=== PATIENT | female | born 1980 | race Caucasian/White ===

== ENCOUNTER 2017-04-06 15:42 | Emergency (ER) | payer SELFPAY ==
[2017-04-06 15:51] VITALS: BP 125/82
--- NOTE | 2017-04-06 16:10 | ER Document Report ---
ED Medical Screen (RME) - General Chief Complaint: Drug Abuse Stated Complaint: HEROINE WITHDRAWAL Time Seen by Provider: 04/06/17 16:05 Notes: This 36-year-old female patient comes emergency room and heroin withdrawal. She has been using over 10 years, currently shoots up about 3 times per day, had very little left for her last dose at 4:00 AM this morning. She complains of severe pain cramps all over. He has been in withdrawal in the past, has never gone through a detox program. I have greeted and performed a rapid initial assessment of this patient. A comprehensive ED assessment and evaluation of the patient, analysis of test results and completion of the medical decision making process will be conducted by additional ED providers. TRAVEL OUTSIDE OF THE [place] IN LAST 30 DAYS: No - Related Data Allergies/Adverse Reactions: erythromycin base Allergy (Verified 04/06/17 15:51) Penicillins Allergy (Verified 04/06/17 15:51) Past Medical History - Social History Drug Abuse: Heroin Renal/ Medical History: Denies: Hx Peritoneal Dialysis Physical Exam - Vital signs Vitals: Temp Pulse Resp BP Pulse Ox 98.2 F 81 24 H 125/82 100 04/06/17 15:48 04/06/17 15:48 04/06/17 15:48 04/06/17 15:48 04/06/17 15:48 Course - Vital Signs Vital signs: Temp Pulse Resp BP Pulse Ox 98.2 F 81 24 H 125/82 100 04/06/17 15:48 04/06/17 15:48 04/06/17 15:48 04/06/17 15:48 04/06/17 15:48
[2017-04-06] MEDS ORDERED: CLONIDINE HCL 0.1 MG TABLET PO ONE ×2 (16:11→16:57)
[2017-04-06] MEDS ORDERED: LORAZEPAM 1 MG TABLET PO ONE (16:19)
[2017-04-06 16:47] LABS: ABSOLUTE MONOCYTES (AUTO) 0.4 10^3/uL (0.1-1.4); ABSOLUTE NEUT (AUTO) 3.6 10^3/uL (1.7-8.2); EOSINOPHILS % (AUTO) 0.4 % (0-6); HEMATOCRIT 44.4 % (36.0-47.0); HEMOGLOBIN 14.4 g/dL (12.0-15.5); HGB HCT DIFFERENCE -1.2; LYMPHOCYTES % (AUTO) 19.8 % (13-45); MEAN CORPUSCULAR HEMOGLOBIN 27.7 pg (27.0-33.4); MEAN CORPUSCULAR HGB CONC 32.6 g/dL (32.0-36.0); MEAN CORPUSCULAR VOLUME 85 fl (80-97); MONOCYTES % (AUTO) 8.1 % (3-13); RED BLOOD COUNT 5.22 10^6/uL (3.72-5.28); RED CELL DISTRIBUTION WIDTH 15.3 % (11.5-14.0); SEGMENTED NEUTROPHILS % (AUTO) 70.7 % (42-78); WHITE BLOOD COUNT 5.1 10^3/uL (4.0-10.5)
--- NOTE | 2017-04-06 16:56 | ER Document Report ---
ED Substance Abuse / Acc. OD - General Chief Complaint: Drug Abuse Stated Complaint: HEROINE WITHDRAWAL Time Seen by Provider: 04/06/17 16:05 Mode of Arrival: Ambulatory Information source: Patient Notes: Patient is a 36-year-old female who presents today stating that she is trying to quit heroin after a 10 year time period. She states that she feels nauseous , body cramps, and chills. She denies any auditory or visual hallucinations, suicidal or homicidal ideations, headache, fevers, neck stiffness, or other review of systems. Patient states she does have a mental health provider. TRAVEL OUTSIDE OF THE [place] IN LAST 30 DAYS: No - HPI Patient complains to provider of: Substance withdrawal Onset: This morning Onset/Duration: Gradual Quality of pain: Achy Severity: Moderate Pain Level: Denies Associated Symptoms: Other - See above Similar symptoms previously: Yes Recently seen / treated by doctor: No - Related Data Allergies/Adverse Reactions: erythromycin base Allergy (Verified 04/06/17 15:51) Penicillins Allergy (Verified 04/06/17 15:51) Past Medical History - General Information source: Patient - Social History Smoking Status: Unknown if Ever Smoked Cigarette use (# per day): No Chew tobacco use (# tins/day): No Smoking Education Provided: No Frequency of alcohol use: None Drug Abuse: Heroin Family History: Reviewed & Not Pertinent Renal/ Medical History: Denies: Hx Peritoneal Dialysis Review of Systems - Review of Systems Constitutional: denies: Fever EENT: Nose congestion, Nose discharge. denies: Eye discharge Cardiovascular: denies: Chest pain, Palpitations Respiratory: denies: Short of breath Gastrointestinal: Nausea. denies: Vomiting Genitourinary: denies: Dysuria Musculoskeletal: denies: Leg swelling Skin: Other - no hives. denies: Rash Neurological/Psychological: Other - no slurred speech -: Yes All other systems reviewed and negative Physical Exam - Vital signs Vitals: Temp Pulse Resp BP Pulse Ox 98.2 F 81 24 H 125/82 100 04/06/17 15:48 04/06/17 15:48 04/06/17 15:48 04/06/17 15:48 04/06/17 15:48 Notes: Reviewed vital signs and nursing note as charted by RN. CONSTITUTIONAL: Alert and oriented and responds appropriately to questions. Appears to be anxious HEAD: Normocephalic; atraumatic EYES: PERRL; no nystagmus ENT: Normal nose; no rhinorrhea; moist mucous membranes; pharynx without lesions noted NECK: Supple without meningismus; non-tender; no cervical lymphadenopathy, no masses CARD: Regular rate and rhythm; no murmurs, no clicks, no rubs, no gallops; symmetric distal pulses RESP: Normal chest excursion without splinting or tachypnea; breath sounds clear and equal bilaterally ABD/GI: Normal bowel sounds; non-distended; soft, non-tender BACK: The back appears normal and is non-tender to palpation, there is no CVA tenderness EXT: Normal ROM in all joints; non-tender to palpation; no cyanosis, no effusions, no edema SKIN: Normal color for age and race; warm; dry; good turgor; capillary refill < 2 seconds; no acute lesions noted NEURO: Moves all extremities equally; Motor and sensory function intact PSYCH: The patient's mood and manner are appropriate. Grooming and personal hygiene are appropriate. Course - Re-evaluation Re-evalutation: Given the above history and physical examination, we will provide clonidine, nausea medications, and a small dose of a benzodiazepine. Patient has no suicidal or homicidal ideations. I believe that the patient is going through heroin withdrawal consistent with the history and physical. I have explained to the patient that we can provide clonidine as well as outpatient resources to help the patient ease her suffering. 04/06/17 16:55 EKG shows a heart rate of 78, normal sinus rhythm, right bundle branch block, no obvious ST elevation or depression 04/06/17 18:30 Labs as recorded. Patient feels improved. We have provided the patient multiple outpatient resources. Strict return precautions have been explained. We have started the patient on an antibiotic for presumed urinary tract infection. - Vital Signs Vital signs: Temp Pulse Resp BP Pulse Ox 98.2 F 81 24 H 125/82 100 04/06/17 15:48 04/06/17 15:48 04/06/17 15:48 04/06/17 15:48 04/06/17 15:48 - Laboratory Result Diagrams: 04/06/17 16:23 04/06/17 16:23 Laboratory results interpreted by me: 04/06/17 04/06/17 04/06/17 16:20 16:23 16:23 RDW 15.3 H Glucose 121 H Direct Bilirubin 0.5 H Total Protein 8.4 H Urine Protein 100 H Urine Ketones TRACE H Ur Leukocyte Esterase LARGE H Salicylates < 1.0 L Acetaminophen < 10 L Discharge - Discharge Clinical Impression: Adverse effect of heroin UTI (urinary tract infection) Qualifiers: Urinary tract infection type: acute cystitis Hematuria presence: without hematuria Qualified Code(s): N30.00 - Acute cystitis without hematuria Condition: Good Disposition: HOME, SELF-CARE Instructions: Urinary Tract Infection ([facility]), Trimethoprim-Sulfa ([facility]) Additional Instructions: Come back immediately with any fevers, persistent vomiting, increased pain, or any other acute problems. Please make sure that you follow-up with the outpatient resources that we have provided. Please make sure that you follow- up for repeat urine analysis as we have discussed Prescriptions: Promethazine HCl [Phenergan 25 mg Tablet] 25 mg PO Q6H PRN #15 tablet PRN Reason: Sulfamethoxazole/Trimethoprim [Bactrim Ds Tablet] 1 each PO BID #20 tablet
[2017-04-06] MEDS ORDERED: ONDANSETRON 4 MG TAB.RAPDIS PO ONE (16:57)
[2017-04-06 17:00] LABS: ALANINE AMINOTRANSFERASE 33 U/L (9-52); ALBUMIN 4.3 g/dL (3.5-5.0); ALKALINE PHOSPHATASE 119 U/L (38-126); ANION GAP 15 (5-19); ASPARTATE AMINO TRANSFERASE 24 U/L (14-36); BILIRUBIN,DIRECT 0.5 mg/dL (0.0-0.4); BILIRUBIN,TOTAL 0.8 mg/dL (0.2-1.3); BLOOD UREA NITROGEN 7 mg/dL (7-20); CALCIUM 9.8 mg/dL (8.4-10.2); CARBON DIOXIDE 23 mmol/L (22-30); CHLORIDE 105 mmol/L (98-107); CREATININE RESULT 0.61 mg/dL (0.52-1.25); GLUCOSE 121 mg/dL (75-110); SODIUM 142.6 mmol/L (137-145); TOTAL PROTEIN 8.4 g/dL (6.3-8.2)
[2017-04-06 17:01] LABS: ALCOHOL < 10 mg/dL (NONE DETECTED)
[2017-04-06 17:01] LABS: AMORPHOUS SEDIMENT,URINE TRACE /HPF; APPEARANCE,URINE CLOUDY; BILIRUBIN,URINE NEGATIVE (NEGATIVE); GLUCOSE, URINE NEGATIVE (NEGATIVE); KETONES,URINE TRACE mg/dL (NEGATIVE); LEUKOCYTE ESTERASE,URINE LARGE (NEGATIVE); NITRITE,URINE NEGATIVE (NEGATIVE); PROTEIN,URINE 100 mg/dL (NEGATIVE); URINE SPECIFIC GRAVITY 1.016; UROBILINOGEN,URINE NEGATIVE mg/dL (<2.0)
--- NOTE | 2017-04-06 17:04 | EKG REPORT ---
SEVERITY:- ABNORMAL ECG - SINUS RHYTHM RIGHT BUNDLE BRANCH BLOCK : Confirmed by: Marleni Varela MD 06-Apr-2017 17:03:58
[2017-04-06 17:27] LABS: URINE BARBITURATES SCREEN NEGATIVE; URINE METHADONE SCREEN NEGATIVE; URINE OPIATES LOW UNCONFIRMED POSITIVE; URINE PHENCYCLIDINE SCREEN NEGATIVE
[2017-04-06] MEDS ORDERED: SULFAMETHOXAZOLE/TRIMETHOPRIM 800-160 MG TABLET PO ONE (17:51)
== END 2017-04-06 18:50 | disposition home or self-care (01) ==
LOC: ER 15:42
DX: F11.10 Opioid abuse, uncomplicated (principal); R11.0 Nausea; N30.00 Acute cystitis without hematuria; R68.83 Chills (without fever); R25.2 Cramp and spasm; R09.81 Nasal congestion; Z88.1 Allergy status to other antibiotic agents; Z88.0 Allergy status to penicillin
CPT/HCPCS: 93005; 99284; 36415; 80307 ×4; 83735; 84703; 85025; 80053; 81001; 93010; S0119

== ENCOUNTER 2017-09-08 09:26 | Emergency (ER) | payer SELFPAY ==
--- NOTE | 2017-09-08 09:52 | ER Document Report ---
ED General - General Chief Complaint: Vaginal Bleeding Stated Complaint: ABDOMINAL PAIN Time Seen by Provider: 09/08/17 09:44 Mode of Arrival: Ambulatory Information source: Patient Notes: 37-year-old female 6 para 3 2 previous miscarriages presents with complaints of vaginal bleeding. Patient notes she found that she is approximately 2 weeks ago started having spotting for the past 10 days noted clots today. Patient denies any fevers or chills denies any nausea vomiting or diarrhea TRAVEL OUTSIDE OF THE [place] IN LAST 30 DAYS: No - HPI Onset: Last week Onset/Duration: Better - Got better after passing clots, Worse - Worsen up until today Quality of pain: Cramping Severity: Mild Pain Level: 1 Associated symptoms: Other Exacerbated by: Denies Relieved by: Denies Similar symptoms previously: Yes Recently seen / treated by doctor: No - Related Data Allergies/Adverse Reactions: erythromycin base Allergy (Verified 04/06/17 15:51) Penicillins Allergy (Verified 04/06/17 15:51) Past Medical History - Social History Smoking Status: Current Every Day Smoker Cigarette use (# per day): Yes Chew tobacco use (# tins/day): No Smoking Education Provided: No Frequency of alcohol use: None Drug Abuse: Heroin Family History: Reviewed & Not Pertinent Renal/ Medical History: Denies: Hx Peritoneal Dialysis Review of Systems - Review of Systems Notes: REVIEW OF SYSTEMS: CONSTITUTIONAL : Denies fever, chills, or sweats. Denies recent illness. EENT: Denies eye, ear, throat, or mouth pain or symptoms. Denies nasal or sinus congestion or discharge. Denies throat, tongue, or mouth swelling or difficulty swallowing. CARDIOVASCULAR: Denies chest pain. Denies palpitations or racing or irregular heart beat. Denies ankle edema. RESPIRATORY: Denies cough, cold, or chest congestion. Denies shortness of breath, difficulty breathing, or wheezing. GASTROINTESTINAL: Denies abdominal pain or distention. Denies nausea, vomiting , or diarrhea. Denies blood in vomitus, stools, or per rectum. Denies black, tarry stools. Denies constipation. GENITOURINARY: Denies difficulty urinating, painful urination, burning, frequency, blood in urine, or discharge. FEMALE GENITOURINARY: Admits pelvic pain vaginal bleeding MUSCULOSKELETAL: Denies back or neck pain or stiffness. Denies joint pain or swelling. SKIN: Denies rash, lesions or sores. HEMATOLOGIC : Denies easy bruising or bleeding. LYMPHATIC: Denies swollen, enlarged glands. NEUROLOGICAL: Denies confusion or altered mental status. Denies passing out or loss of consciousness. Denies dizziness or lightheadedness. Denies headache. Denies weakness or paralysis or loss of use of either side. Denies problems with gait or speech. Denies sensory loss, numbness, or tingling. Denies seizures. PSYCHIATRIC: Denies anxiety or stress. Denies depression, suicidal ideation, or homicidal ideation. ALL OTHER SYSTEMS REVIEWED AND NEGATIVE. PHYSICAL EXAMINATION: GENERAL: Well-appearing, well-nourished and in no acute distress. HEAD: Atraumatic, normocephalic. EYES: Pupils equal round and reactive to light, extraocular movements intact, conjunctiva are normal. ENT: Nares patent, oropharynx clear without exudates. Moist mucous membranes. NECK: Normal range of motion, supple without lymphadenopathy LUNGS: Breath sounds clear to auscultation bilaterally and equal. No wheezes rales or rhonchi. HEART: Regular rate and rhythm without murmurs ABDOMEN: Soft, nontender, nondistended abdomen. No guarding, no rebound. No masses appreciated. Female : deferred Musculoskeletal: Normal range of motion, no pitting or edema. No cyanosis. NEUROLOGICAL: Cranial nerves grossly intact. Normal speech, normal gait. Normal sensory, motor exams PSYCH: Normal mood, normal affect. SKIN: Warm, Dry, normal turgor, no rashes or lesions noted. Dictation was performed using [employer] voice recognition software Physical Exam - Vital signs Vitals: Temp Pulse Resp BP Pulse Ox 98.9 F 103 H 16 120/71 97 09/08/17 09:36 09/08/17 09:36 09/08/17 09:36 09/08/17 09:36 09/08/17 09:36 Course - Re-evaluation Re-evalutation: 09/08/17 09:52 RhoGam workup pending, patient believes she miscarried imaging pending 09/08/17 12:03 Patient's hCG is negative, she has not been based on this, ultrasound was also normal. Patient has been given instructions regarding this and follow- up After performing a Medical Screening Examination, I estimate there is LOW risk for ACUTE APPENDICITIS, BOWEL OBSTRUCTION, ACUTE CHOLECYSTITIS, PERFORATED DIVERTICULITIS, INCARCERATED HERNIA, PANCREATITIS, PELVIC INFLAMMATORY DISEASE, PERFORATED ULCER, ECTOPIC , or TUBO-OVARIAN ABSCESS, thus I consider the discharge disposition reasonable. Also, there is no evidence or peritonitis , sepsis, or toxicity. I have reevaluated this patient multiple times and no significant life threatening changes are noted. The patient and I have discussed the diagnosis and risks, and we agree with discharging home with close follow-up with the understanding that symptoms and presentations can change. We also discussed returning to the Emergency Department immediately if new or worsening symptoms occur. We have discussed the symptoms which are most concerning (e.g., bloody stool, fever, changing or worsening pain, vomiting) that necessitate immediate return. - Vital Signs Vital signs: Temp Pulse Resp BP Pulse Ox 98.9 F 103 H 16 120/71 97 09/08/17 09:36 09/08/17 09:36 09/08/17 09:36 09/08/17 09:36 09/08/17 09:36 - Laboratory Result Diagrams: 09/08/17 10:05 09/08/17 10:05 Laboratory results interpreted by me: 09/08/17 09/08/17 10:05 10:05 RDW 15.4 H Glucose 119 H - Diagnostic Test Radiology reviewed: Image reviewed, Reports reviewed Discharge - Discharge Clinical Impression: Vaginal bleeding Condition: Stable Disposition: HOME, SELF-CARE Additional Instructions: Follow up with your physician tomorrow for further care or return to the ED IMMEDIATELY if symptoms worsen or new concerns occur. If you cannot afford to follow up with your primary care physician a list of low cost clinics have been provided at the end of your discharge papers as well.
[2017-09-08 10:28] LABS: ABSOLUTE BASOPHILS # (AUTO) 0.1 10^3/uL (0.0-0.2); ABSOLUTE EOSINOPHILS # (AUTO) 0.2 10^3/uL (0.0-0.6); ABSOLUTE MONOCYTES (AUTO) 0.4 10^3/uL (0.1-1.4); ABSOLUTE NEUT (AUTO) 4.6 10^3/uL (1.7-8.2); BASOPHILS % (AUTO) 1.2 % (0-2); EOSINOPHILS % (AUTO) 2.1 % (0-6); HEMATOCRIT 41.1 % (36.0-47.0); HEMOGLOBIN 13.8 g/dL (12.0-15.5); HGB HCT DIFFERENCE 0.3; LYMPHOCYTES % (AUTO) 28.2 % (13-45); MEAN CORPUSCULAR HGB CONC 33.6 g/dL (32.0-36.0); MEAN CORPUSCULAR VOLUME 83 fl (80-97); MONOCYTES % (AUTO) 5.2 % (3-13); RED BLOOD COUNT 4.93 10^6/uL (3.72-5.28); RED CELL DISTRIBUTION WIDTH 15.4 % (11.5-14.0); SEGMENTED NEUTROPHILS % (AUTO) 63.3 % (42-78); WHITE BLOOD COUNT 7.3 10^3/uL (4.0-10.5)
[2017-09-08 10:44] LABS: ALANINE AMINOTRANSFERASE 30 U/L (9-52); ALKALINE PHOSPHATASE 82 U/L (38-126); ANION GAP 12 (5-19); APPEARANCE,URINE CLEAR; ASPARTATE AMINO TRANSFERASE 29 U/L (14-36); BILIRUBIN,DIRECT 0.3 mg/dL (0.0-0.4); BILIRUBIN,TOTAL 0.4 mg/dL (0.2-1.3); BILIRUBIN,URINE NEGATIVE (NEGATIVE); BLOOD UREA NITROGEN 10 mg/dL (7-20); CALCIUM 9.5 mg/dL (8.4-10.2); CARBON DIOXIDE 26 mmol/L (22-30); CHLORIDE 102 mmol/L (98-107); CREATININE RESULT 0.61 mg/dL (0.52-1.25); GLUCOSE 119 mg/dL (75-110); GLUCOSE, URINE NEGATIVE (NEGATIVE); KETONES,URINE NEGATIVE (NEGATIVE); LEUKOCYTE ESTERASE,URINE NEGATIVE (NEGATIVE); NITRITE,URINE NEGATIVE (NEGATIVE); POTASSIUM 4.8 mmol/L (3.6-5.0); PROTEIN,URINE NEGATIVE (NEGATIVE); SODIUM 140.1 mmol/L (137-145); TOTAL PROTEIN 6.9 g/dL (6.3-8.2); URINE SPECIFIC GRAVITY 1.005; UROBILINOGEN,URINE NEGATIVE mg/dL (<2.0)
--- NOTE | 2017-09-08 11:41 | RADIOLOGY REPORT (SQ) ---
EXAM DESCRIPTION: U/S OB TRANSVAGINAL W/O DOP COMPLETED DATE/TIME: 09/08/2017 11:18 am REASON FOR STUDY: vag bleed preg COMPARISON: None. TECHNIQUE: Transvaginal static and realtime grayscale images acquired of the pelvis. Additional alberto cted spectral and color Doppler images recorded. All images stored on PACs. bHCG: Not available. LIMITATIONS: None. FINDINGS: No intrauterine gestational sac is identified. UTERUS: 7 x 4.2 x 4.1 cm. No masses or anomalies. CERVICAL LENGTH: 2 cm Closed. RIGHT ADNEXA: Right ovary measures 3.9 x 3.1 x 2.8 cm. There is a 2.8 x 2.3 x 2.6 cm cyst that conta ins dependent debris. No adnexal free fluid. No adnexal masses. LEFT ADNEXA: Left ovary measures 3.4 x 2.9 x 1.6 cm. No adnexal free fluid. No adnexal masses. FREE FLUID: None. OTHER: No other significant finding. IMPRESSION: 1. No intrauterine gestation is seen 2. There is a right ovarian cyst that likely represents a hemorrhagic cyst. TECHNICAL DOCUMENTATION: JOB ID: [id number] [employer]- All Rights Reserved
[2017-09-08 12:04] VITALS: BP 103/65
== END 2017-09-08 12:04 | disposition home or self-care (01) ==
LOC: ER 09:26
DX: N83.201 Unspecified ovarian cyst, right side (principal); N93.9 Abnormal uterine and vaginal bleeding, unspecified; R10.9 Unspecified abdominal pain
CPT/HCPCS: 36415; 76817; 80053; 81001; 84702; 85025; 86900; 86901; 99284

== ENCOUNTER 2017-10-18 13:37 | Emergency (ER) | payer SELFPAY ==
[2017-10-18] MEDS ORDERED: CLINDAMYCIN HCL 150 MG CAPSULE PO ONE (15:09)
[2017-10-18] MEDS ORDERED: LIDOCAINE 2% VISCOUS SOLN 20 ML UDCUP PO ONE (15:09)
--- NOTE | 2017-10-18 15:14 | ER Document Report ---
ED Oral Problem - General Chief Complaint: Toothache Stated Complaint: MOUTH PAIN Time Seen by Provider: 10/18/17 14:50 Mode of Arrival: Ambulatory Information source: Patient Notes: Patient was seen this afternoon at 1450 for dental pain to the left lower jaw. She has multiple very decayed teeth in this area who that have been decayed for some time and she states that 1 of them broke today. She states that she had been living in [place] and that they would not fix her teeth that she did not have insurance. She states she is moved to [place] and is not got the money to fix them now. TRAVEL OUTSIDE OF THE U.S. IN LAST 30 DAYS: No - HPI Patient complains to provider of: Jaw pain, Toothache Onset: Other - Chronic Quality of pain: Sharp, Throbbing Severity: Severe Pain Level: 5 Associated symptoms: Jaw pain, Toothache Worsened by: Cold Relieved by: Nothing Similar symptoms previously: Yes Recently seen / treated by doctor/dentist: No - Related Data Allergies/Adverse Reactions: erythromycin base Allergy (Verified 10/18/17 14:07) Penicillins Allergy (Verified 10/18/17 14:07) Past Medical History - General Information source: Patient - Social History Smoking Status: Current Every Day Smoker Cigarette use (# per day): Yes - 5 cigarettes a day Chew tobacco use (# tins/day): No Smoking Education Provided: Yes - 3 minutes Frequency of alcohol use: None Drug Abuse: None Occupation: [employer] Lives with: Alone Family History: Reviewed & Not Pertinent Patient has suicidal ideation: No Patient has homicidal ideation: No - Past Medical History Cardiac Medical History: Reports: None Pulmonary Medical History: Reports: None EENT Medical History: Reports: None Neurological Medical History: Reports: Hx Migraine Renal/ Medical History: Reports: Hx Ovarian Cysts Malignancy Medical History: Reports: Other - ovarian GI Medical History: Reports: None Musculoskeltal Medical History: Reports Hx Musculoskeletal Trauma Skin Medical History: Reports None Psychiatric Medical History: Reports: Hx Anxiety, Hx Bipolar Disorder, Hx Borderline Personality Disorder, Hx Depression, Hx Post Traumatic Stress Disorder Traumatic Medical History: Reports: Hx Fractures - Patient states she has had a hip and multiple bones in her face fractures Infectious Medical History: Reports: None Surgical Hx: Negative Past Surgical History: Reports: None Review of Systems - Review of Systems Constitutional: No symptoms reported EENT: Mouth pain, Mouth swelling, Dental problem Cardiovascular: No symptoms reported Respiratory: No symptoms reported Gastrointestinal: No symptoms reported Genitourinary: No symptoms reported Female Genitourinary: No symptoms reported Musculoskeletal: No symptoms reported Skin: No symptoms reported Hematologic/Lymphatic: No symptoms reported Neurological/Psychological: No symptoms reported Physical Exam - Vital signs Vitals: Temp Pulse Resp BP Pulse Ox 98.7 F 67 14 132/66 H 100 10/18/17 13:46 10/18/17 13:46 10/18/17 13:46 10/18/17 13:46 10/18/17 13:46 Interpretation: Normal - General General appearance: Appears well, Alert - HEENT Head: Normocephalic, Atraumatic Eyes: Normal Pupils: PERRL Ears: Normal External canal: Normal Tympanic membrane: Normal Sinus: Normal Nasal: Normal Mouth/Lips: Caries Teeth diagram: 1 - Very decayed crumbling teeth with redness surrounding the gums Pharynx: Other - Minimal swelling to be jaw. States that she felt the abscess pop and drainage call in her mouth tastes bad earlier today Neck: Anterior cervical chain - Respiratory Respiratory status: No respiratory distress Chest status: Nontender Breath sounds: Normal Chest palpation: Normal - Cardiovascular Rhythm: Regular Heart sounds: Normal auscultation Murmur: No - Abdominal Inspection: Normal Distension: No distension Bowel sounds: Normal Tenderness: Nontender Organomegaly: No organomegaly - Back Back: Normal, Nontender - Extremities General upper extremity: Normal inspection, Nontender, Normal color, Normal ROM , Normal temperature General lower extremity: Normal inspection, Nontender, Normal color, Normal ROM , Normal temperature, Normal weight bearing. No: Melvin's sign - Neurological Neuro grossly intact: Yes Cognition: Normal Orientation: AAOx4 [place] Coma Scale Eye Opening: Spontaneous Bri Coma Scale Verbal: Oriented Bri Coma Scale Motor: Obeys Commands [place] Coma Scale Total: 15 Speech: Normal Motor strength normal: LUE, RUE, LLE, RLE Sensory: Normal - Psychological Associated symptoms: Normal affect, Normal mood - Skin Skin Temperature: Warm Skin Moisture: Dry Skin Color: Normal Course - Re-evaluation Re-evalutation: 10/18/17 20:55 patient was treated with clindamycin viscous lidocaine in the emergency room for her dental pain and decayed teeth. This is a chronic problem that she has had for a long time and has not been to the dentist to have definitive treatment. She was discharged home with a prescription for clindamycin instructed on use of ibuprofen and Tylenol in the need to please follow-up with the dentist. - Vital Signs Vital signs: Temp Pulse Resp BP Pulse Ox 98.7 F 81 16 124/69 100 10/18/17 13:46 10/18/17 15:34 10/18/17 15:34 10/18/17 15:34 10/18/17 15:34 Discharge - Discharge Clinical Impression: Pain due to dental caries High blood pressure Qualifiers: Hypertension type: unspecified Qualified Code(s): I10 - Essential (primary) hypertension Condition: Stable Disposition: HOME, SELF-CARE Additional Instructions: TOOTHACHE: Your pain is due to dental decay. The tooth must be repaired in order for you to feel better. You will, therefore, be referred to a dentist. We do not have dentists on the staff at [facility]. Severe swelling or drainage around a tooth usually means a dental abscess. This also requires evaluation and treatment by the dentist, but antibiotics may be prescribed while awaiting dental treatment. You should be rechecked immediately if you develop major swelling of the face, increasing pain, a lump in the jaw or gums, headache, difficulty swallowing, or fever. High Blood Pressure When your blood pressure was taken today it was elevated. Today's reading was____132/66 . Pre-hypertension/Hypertension: The patient has been informed that they may have pre-hypertension or Hypertension based on a blood pressure reading in the emergency department. I recommend that the patient call the primary care provider listed on their discharge instructions or a physician of their choice this wee to arrange follow up for further evaluation of possible pre- hypertension or Hypertension. Sometimes, stress or illness causes a temporary elevation of your blood pressure. We suggest that you get your blood pressure measured three more times during the next few days to see if this is more than a temporary abnormality. If your blood pressure is greater than 150/90 on each occasion, you must have treatment. Some simple things you can do to help are: If you have blood pressure medicine but aren't using it regularly, start taking it again. Get some aerobic exercise for at least 20 minutes on a daily basis. (See your doctor before beginning a new exercise program.) Eat a low-fat diet. Lose excess weight. Avoid salty foods and avoid adding salt to any of the foods you eat. Avoid diet pills, decongestants, "energizing" herbs, and other medicines that elevate blood pressure. If left untreated, hypertension greatly enhances your risk for developing heart disease and strokes. Please don't ignore this problem. CLINDAMYCIN: You have been given a prescription for the antibiotic clindamycin. It is often prescribed for infections in the mouth, such as dental infections or abscesses, and for skin infections due to MRSA. It's important that you take all the medication, unless instructed otherwise by your physician. Failure to complete the entire course can result in relapse of your condition. Common side effects of antibiotics include nausea, intestinal cramping, or diarrhea. Women may develop vaginal yeast infections, and babies can get yeast (thrush) in the mouth following the use of antibiotics. Contact your physician if you develop significant side effects from this medication. Allergy to this antibiotic can result in hives, wheezing, faintness, or itching. If symptoms of allergy occur, stop the medication and call the doctor. FOLLOW-UP CARE: You have been referred for follow-up care to the dentists listed below. Call the dentists office for an appointment as you were instructed or within the next two days. If you experience worsening or a significant change in your symptoms, notify the physician immediately or return to the Emergency Department at any time for re-evaluation. [facility] [address] [place], [place] Wednesday mornings, by appointment [facility] [address] [place] [address] [facility]ly [facility], [facility] [address] [facility] [address] [facility] [address] [facility]. YuanVpresbyterian kaseman hospitalDFT Micro[facility] [address] [place] [email or web address] [address] [place] [address] Wednesday- 8:00am to 5:00 pm Will see patients from other [facility]. Charges based on income and family size and accepts Medicare, Medicaid, and Insurances Will pull molars [facility] [phone] Hours of Operation 8:00 am - 4:30 pm weekdays The following dental offices accept Medicaid: [facility] Dr. Foy Dr. Peck Dr. Mccullough Dr. Welsh Richard Grey, Saji, and Rajni oral surgery Dr. Murphy ([place]) Dr. Lewis ([place]) [facility] Drs. Campuzano and Alonzo ([place]) Dr. Hill ([place]) [facility] Dr. Candelaria ([place]) Drs. Paul and ([place]) Medicaid Care Line Prescriptions: Clindamycin HCl 300 mg PO Q6 #40 capsule Forms: Elevated Blood Pressure, Smoking Cessation Education, Return to Work
[2017-10-18 15:36] VITALS: BP 124/69
== END 2017-10-18 15:37 | disposition home or self-care (01) ==
LOC: ER 13:37
DX: K02.9 Dental caries, unspecified (principal); K08.89 Other specified disorders of teeth and supporting structures; R22.0 Localized swelling, mass and lump, head; I10 Essential (primary) hypertension; F17.210 Nicotine dependence, cigarettes, uncomplicated; Z71.6 Tobacco abuse counseling; Z88.1 Allergy status to other antibiotic agents; Z88.0 Allergy status to penicillin
CPT/HCPCS: 99282; J3490

== ENCOUNTER 2018-07-18 22:24 | Emergency (ER) | payer SELFPAY ==
[2018-07-18 22:44] VITALS: BP 121/75
[2018-07-19] MEDS ORDERED: FLUCONAZOLE 100 MG TABLET PO ONE (01:25)
--- NOTE | 2018-07-19 01:28 | ER Document Report ---
HPI - HPI Patient complains to provider of: Skin rash Pain Level: 4 Context: Patient is a 38-year-old female that comes to the emergency department for states that it actually was worse about a day ago but it has not resolved. She states it is uncomfortable and itchy. She denies fever chills, she denies any other symptoms. She denies history of the same. She has had chickenpox. Tetanus is up-to-date reportedly. - CONSTITUTIONAL Constitutional: DENIES: Fever, Chills - EENT EENT: DENIES: Sore Throat, Ear Pain, Eye problems - NEURO Neurology: DENIES: Headache, Weakness, Vision blurred, Dizzinesss / Vertigo - CARDIOVASCULAR Cardiovascular: DENIES: Chest pain - RESPIRATORY Respiratory: DENIES: Trouble Breathing, Coughing - GASTROINTESTINAL Gastrointestinal: DENIES: Abdominal Pain, Black / Bloody Stools - URINARY Urinary: DENIES: Dysuria, Urgency, Frequency - MUSCULOSKELETAL Musculoskeletal: DENIES: Extremity pain Past Medical History - General Information source: Patient - Social History Smoking Status: Former Smoker Lives with: Family Family History: Reviewed & Not Pertinent Patient has suicidal ideation: No Patient has homicidal ideation: No Neurological Medical History: Reports: Hx Migraine Renal/ Medical History: Reports: Hx Ovarian Cysts. Denies: Hx Peritoneal Dialysis Musculoskeletal Medical History: Reports Hx Musculoskeletal Trauma Psychiatric Medical History: Reports: Hx Anxiety, Hx Bipolar Disorder, Hx Borderline Personality Disorder, Hx Depression, Hx Post Traumatic Stress Disorder Traumatic Medical History: Reports: Hx Fractures - Patient states she has had a hip and multiple bones in her face fractures Vertical Provider Document - CONSTITUTIONAL General Appearance: WD/WN, No Apparent Distress - INFECTION CONTROL TRAVEL OUTSIDE OF THE U.S. IN LAST 30 DAYS: No - HEENT HEENT: Atraumatic, Normal ENT Exam, Normocephalic - NECK Neck: Normal Inspection - RESPIRATORY Respiratory: Breath Sounds Normal, No Respiratory Distress - CARDIOVASCULAR Cardiovascular: Regular Rate, Regular Rhythm - GI/ABDOMEN Gastrointestinal: Abdomen Soft, Abdomen Non-Tender - BACK Back: Normal Inspection - NEURO Level of Consciousness: Awake, Alert, Appropriate - DERM Integumentary: Rash - Erythematous scattered rash over the fold of the lower abdomen, crosses the midline, no overt heat, no vesicles, pustules, bulla, no induration or fluctuance, skin exam otherwise unremarkable. Course - Re-evaluation Re-evalutation: Patient has a skin fold at the bottom of her abdomen, underneath pannus there is an area of skin irritation, erythema, consistent with fungal infection of the skin. Patient states she is placing wet cloth over the area because it feels good. Advised her against this, discussed treatment of yeast. There is no evidence of vesicles/shingles, no evidence of secondary bacterial infection, rash crosses the midline. Discussed treatment, given Diflucan, placing on clotrimazole, discussed primary care follow-up and return precautions. Patient states understanding and agreement. - Vital Signs Vital signs: Temp Pulse Resp BP Pulse Ox 99.1 F 81 18 121/75 97 07/18/18 22:43 07/18/18 22:43 07/18/18 22:43 07/18/18 22:43 07/18/18 22:43 Discharge - Discharge Clinical Impression: Skin rash Condition: Stable Disposition: HOME, SELF-CARE Additional Instructions: The rash is fungal in nature. You have been medicated for this initially, complete treatment by applying topical medication as well. Keep area clean, make sure the area is dry (if the area is damp it will be less likely to heal). Follow-up with primary care. Return if you worsen including developing spreading redness, severe pain, fever of 100.4 or greater, or any other concerning symptoms. Prescriptions: Clotrimazole 30 gm TP ASDIR PRN #2 cream.gm. PRN Reason:
== END 2018-07-19 01:40 | disposition home or self-care (01) ==
LOC: ER 22:24
DX: R21 Rash and other nonspecific skin eruption (principal); Z87.891 Personal history of nicotine dependence
CPT/HCPCS: 99282

== ENCOUNTER 2019-06-19 14:24 | Emergency (ER) | payer BC ==
--- NOTE | 2019-06-19 14:41 | ER Document Report ---
ED Medical Screen (RME) - General Chief Complaint: Seizure Stated Complaint: POSSIBLE SEIZURE Time Seen by Provider: 06/19/19 14:30 Notes: Patient is a 38-year-old female presents to emergency department with a chief complaint of possible seizure. Patient states around 9 AM she was getting ready for work in her bathroom when she had acute onset of headache, a feeling like her pupils were dilating and all she remembers is waking up on the floor around 1:40 PM this afternoon. Patient does report a loss of consciousness and states she feels like she hit her head on the right side she does feel a soreness. Patient states she woke up this at the bathroom toilet. Patient states she has had seizures in the past and did stop taking her Tegretol in April because she did not like the way it made her feel. Patient states she has been on methadone for the past 9 years for chronic pain. Patient states that in October she went to the [facility] to detox off of the methadone as she did not want to be on medication anymore. Patient states that at that time she did have multiple seizures. They did not put her on Suboxone. Patient has been taking Suboxone since then as prescribed. Patient states she was on Tegretol for seizures and depression. TRAVEL OUTSIDE OF THE [place] IN LAST 30 DAYS: No - Related Data Allergies/Adverse Reactions: erythromycin base Allergy (Verified 06/19/19 14:27) Penicillins Allergy (Verified 06/19/19 14:27) Past Medical History - Social History Frequency of alcohol use: None Drug Abuse: None Neurological Medical History: Reports: Hx Migraine Renal/ Medical History: Reports: Hx Ovarian Cysts. Denies: Hx Peritoneal Dialysis Musculoskeltal Medical History: Reports Hx Musculoskeletal Trauma Psychiatric Medical History: Reports: Hx Anxiety, Hx Bipolar Disorder, Hx Borderline Personality Disorder, Hx Depression, Hx Post Traumatic Stress Disorder Traumatic Medical History: Reports: Hx Fractures - Patient states she has had a hip and multiple bones in her face fractures Physical Exam - Vital signs Vitals: Temp Pulse Resp BP Pulse Ox 98.2 F 87 18 121/64 98 06/19/19 14:29 06/19/19 14:29 06/19/19 14:29 06/19/19 14:29 06/19/19 14:29 Interpretation: Normal - HEENT Head: Normocephalic Eyes: Normal Conjunctiva: Normal Cornea: Normal Extraocular movements intact: Yes Eyelashes: Normal Pupils: PERRL Notes: Negative lorenzo sign. Course - Re-evaluation Re-evalutation: 06/19/19 14:40 I have greeted and performed a rapid initial assessment of this patient. A comprehensive ED assessment and evaluation of the patient, analysis of test results and completion of the medical decision making process will be conducted by additional ED providers. - Vital Signs Vital signs: Temp Pulse Resp BP Pulse Ox 98.2 F 87 18 121/64 98 06/19/19 14:29 06/19/19 14:29 06/19/19 14:29 06/19/19 14:29 06/19/19 14:29
[2019-06-19 15:05] LABS: ABSOLUTE BASOPHILS # (AUTO) 0.1 10^3/uL (0.0-0.2); ABSOLUTE EOSINOPHILS # (AUTO) 0.2 10^3/uL (0.0-0.6); ABSOLUTE MONOCYTES (AUTO) 0.4 10^3/uL (0.1-1.4); ABSOLUTE NEUT (AUTO) 5.5 10^3/uL (1.7-8.2); BASOPHILS % (AUTO) 0.8 % (0-2); EOSINOPHILS % (AUTO) 2.2 % (0-6); HEMATOCRIT 39.6 % (36.0-47.0); HEMOGLOBIN 13.3 g/dL (12.0-15.5); LYMPHOCYTES % (AUTO) 24.6 % (13-45); MEAN CORPUSCULAR HEMOGLOBIN 28.3 pg (27.0-33.4); MEAN CORPUSCULAR HGB CONC 33.5 g/dL (32.0-36.0); MEAN CORPUSCULAR VOLUME 85 fl (80-97); MONOCYTES % (AUTO) 4.6 % (3-13); PLATELET COUNT 306 10^3/uL (150-450); RED BLOOD COUNT 4.68 10^6/uL (3.72-5.28); SEGMENTED NEUTROPHILS % (AUTO) 67.8 % (42-78); TOTAL CELLS COUNTED % (AUTO) 100 %; WHITE BLOOD COUNT 8.1 10^3/uL (4.0-10.5)
[2019-06-19 15:28] LABS: ALKALINE PHOSPHATASE 65 U/L (38-126); ANION GAP 9 (5-19); ASPARTATE AMINO TRANSFERASE 22 U/L (14-36); BILIRUBIN,DIRECT 0.2 mg/dL (0.0-0.4); BILIRUBIN,TOTAL 0.3 mg/dL (0.2-1.3); BLOOD UREA NITROGEN 10 mg/dL (7-20); CALCIUM 9.3 mg/dL (8.4-10.2); CARBON DIOXIDE 26 mmol/L (22-30); CHLORIDE 104 mmol/L (98-107); GLUCOSE 93 mg/dL (75-110); POTASSIUM 4.5 mmol/L (3.6-5.0); TOTAL PROTEIN 6.8 g/dL (6.3-8.2)
--- NOTE | 2019-06-19 15:44 | RADIOLOGY REPORT (SQ) ---
EXAM DESCRIPTION: CT HEAD WITHOUT COMPLETED DATE/TIME: 06/19/2019 3:36 pm REASON FOR STUDY: fall, + loc COMPARISON: None. TECHNIQUE: Axial images acquired through the brain without intravenous contrast. Images reviewed wi th bone, brain and subdural windows. Additional sagittal and coronal reconstructions were generated. Images stored on PACS. All CT scanners at this facility use dose modulation, iterative reconstruction, and/or weight based d osing when appropriate to reduce radiation dose to as low as reasonably achievable (ALARA). [facility]: Dose Right [facility]: CareDose [facility]: Dose Right [facility]: Teradose 4D [facility]: [employer] RADIATION DOSE: CT Rad equipment meets quality standard of care and radiation dose reduction techniq ues were employed. CTDIvol: 53.2 mGy. DLP: 964 mGy-cm. mGy. LIMITATIONS: None. FINDINGS: VENTRICLES: Normal size and contour. CEREBRUM: No masses. No hemorrhage. No midline shift. No evidence for acute infarction. Normal gra y/white matter differentiation. No areas of low density in the white matter. CEREBELLUM: No masses. No hemorrhage. No alteration of density. No evidence for acute infarction. EXTRAAXIAL SPACES: No fluid collections. No masses. ORBITS AND GLOBE: No intra- or extraconal masses. Normal contour of globe without masses. CALVARIUM: No fracture. PARANASAL SINUSES: No fluid or mucosal thickening. SOFT TISSUES: No mass or hematoma. OTHER: No other significant finding. IMPRESSION: NORMAL BRAIN CT WITHOUT CONTRAST. EVIDENCE OF ACUTE STROKE: NO. COMMENT: Quality ID # [id number]: Final reports with documentation of one or more dose reduction techniques (e.g., Automated exposure control, adjustment of the mA and/or kV according to patient size, use of iterative reconstruction technique) TECHNICAL DOCUMENTATION: JOB ID: [id number] [employer] ([employer])- All Rights Reserved Reading location - IP/workstation name: [email or web address]
--- NOTE | 2019-06-19 15:59 | ER Document Report ---
ED General - General Chief Complaint: Seizure Stated Complaint: POSSIBLE SEIZURE Time Seen by Provider: 06/19/19 14:30 TRAVEL OUTSIDE OF THE [place] IN LAST 30 DAYS: No - HPI Notes: Patient is a 38-year-old female who presents to the emergency department for evaluation after a seizure. The patient has a known history of seizure disorder. She was being treated with Tegretol. She states that she thought her dose was too high. Her provider was treating her with this for not only seizure disorder but also bipolar disorder. She states she was so tired she could not get out of bed. She stopped taking the medication. Since stopping the medicine about a month ago, she has had 3 seizures. She states last month she had was today. She turned on her water to get in the shower, woke up on the floor. She has a mild headache at this time. She denies any neck stiffness. Bright light makes the head pain worse. She has been dizzy intermittently over the last several days. She just feels fatigued. - Related Data Allergies/Adverse Reactions: erythromycin base Allergy (Verified 06/19/19 14:27) Penicillins Allergy (Verified 06/19/19 14:27) Past Medical History - General Information source: Patient - Social History Smoking Status: Current Every Day Smoker Frequency of alcohol use: None Drug Abuse: None Family History: Reviewed & Not Pertinent Patient has suicidal ideation: No Patient has homicidal ideation: No Neurological Medical History: Reports: Hx Migraine, Hx Seizures Renal/ Medical History: Reports: Hx Ovarian Cysts. Denies: Hx Peritoneal Dialysis Musculoskeletal Medical History: Reports Hx Musculoskeletal Trauma Psychiatric Medical History: Reports: Hx Anxiety, Hx Bipolar Disorder, Hx Borderline Personality Disorder, Hx Depression, Hx Post Traumatic Stress Disorder Traumatic Medical History: Reports: Hx Fractures - Patient states she has had a hip and multiple bones in her face fractures Past Surgical History: Reports: Hx Tubal Ligation Review of Systems - Review of Systems Constitutional: See HPI EENT: No symptoms reported Cardiovascular: See HPI Respiratory: No symptoms reported Gastrointestinal: No symptoms reported Genitourinary: No symptoms reported Musculoskeletal: No symptoms reported Skin: No symptoms reported Neurological/Psychological: No symptoms reported Physical Exam - Vital signs Vitals: Temp Pulse Resp BP Pulse Ox 98.2 F 87 18 121/64 98 06/19/19 14:29 06/19/19 14:29 06/19/19 14:29 06/19/19 14:29 06/19/19 14:29 - Notes Notes: Vital signs reviewed, please refer to chart. Head is normocephalic, atraumatic. Pupils equal round, reactive to light. Neck is supple without meningismus. Examination of the cervical spine is no midline tenderness or step-off. No paraspinal musculature tenderness is appreciated. Heart is regular rate and rhythm. Lungs are clear to auscultation bilaterally. Abdomen is soft, nontender, normoactive bowel sounds throughout. Extremities without cyanosis, clubbing. Posterior calves are nontender. Peripheral pulses are equal. Skin is warm and dry. Patient is awake, alert, oriented x3. Cranial nerves II - XII are grossly intact without focal neurological deficits. Strength is plus 5 out of 5 bilateral upper and lower extremities. Sensation is intact. Reflexes symmetrical. Intact [id number], rapid alternating movements, [id number]. Course - Re-evaluation Re-evalutation: 06/19/19 18:11 Patient presents emergency department for evaluation after a seizure. She does specifically ask for a work excuse. She is currently not any sort of anticonvulsant. She did not tolerate Tegretol in the past secondary to fatigue, but was actually well controlled. She had no seizure activity while here. Her laboratory investigations were remarkable only for positive cocaine. CT scan unremarkable. Patient was given IV fluids, loaded with Keppra. I will go ahead and start her on Keppra as an outpatient. The importance of close follow-up was stressed to the patient. I also spoke extensively to her about the fact that she should absolutely, in no uncertain terms, not be driving. Patient voiced understanding to this. We talked at length about the danger that this poses to herself as well as to other people on the road. Again she voiced understanding and states she will not drive. Otherwise she is to follow-up with primary care, take Keppra as directed, return to the ED with worsening or new concerning symptoms of any sort. - Vital Signs Vital signs: Temp Pulse Resp BP Pulse Ox 98.2 F 87 15 110/68 98 06/19/19 14:29 06/19/19 14:29 06/19/19 17:00 06/19/19 15:13 06/19/19 17:00 - Laboratory Result Diagrams: 06/19/19 14:55 06/19/19 14:55 Laboratory results interpreted by me: 06/19/19 06/19/19 14:55 16:35 RDW 15.0 H Urine Blood LARGE H - Diagnostic Test Radiology reviewed: Reports reviewed Radiology results interpreted by me: 06/19/19 18:[address] 06/19/19 14:36 IMPRESSION: NORMAL BRAIN CT WITHOUT CONTRAST. EVIDENCE OF ACUTE STROKE: NO. Discharge - Discharge Clinical Impression: Seizure Condition: Stable Disposition: HOME, SELF-CARE Instructions: Seizure, Known Epileptic ([facility]) Additional Instructions: You need to take Keppra as directed. Follow-up with primary care this week, seek out referral to neurology. Return to the emergency department with worsening or new concerning symptoms. DO NOT DRIVE! Forms: Return to Work
[2019-06-19] MEDS ORDERED: NORMAL SALINE 1000 ML 1,000 ML IV ONE (16:58)
[2019-06-19 17:10] LABS: APPEARANCE,URINE CLEAR; BILIRUBIN,URINE NEGATIVE (NEGATIVE); COLOR,URINE COLORLESS; GLUCOSE, URINE NEGATIVE (NEGATIVE); KETONES,URINE NEGATIVE (NEGATIVE); LEUKOCYTE ESTERASE,URINE NEGATIVE (NEGATIVE); NITRITE,URINE NEGATIVE (NEGATIVE); PROTEIN,URINE NEGATIVE (NEGATIVE); URINE SPECIFIC GRAVITY 1.002; UROBILINOGEN,URINE NEGATIVE mg/dL (<2.0)
[2019-06-19 17:25] LABS: URINE AMPHETAMINES SCREEN NEGATIVE; URINE BARBITURATES SCREEN NEGATIVE; URINE BENZODIAZEPINES SCREEN NEGATIVE; URINE COCAINE SCREEN UNCONFIRMED POSITIVE; URINE MARIJUANA (THC) SCREEN NEGATIVE; URINE METHADONE SCREEN NEGATIVE; URINE PHENCYCLIDINE SCREEN NEGATIVE
[2019-06-19] MEDS ORDERED: LEVETIRACETAM INJ/PF 500 MG/5 ML SDV IV ONE (18:04)
[2019-06-19 19:15] VITALS: BP 100/63
== END 2019-06-19 19:10 | disposition home or self-care (01) ==
LOC: ER 14:24
DX: R56.9 Unspecified convulsions (principal); R53.83 Other fatigue; R51 Headache; R42 Dizziness and giddiness; Z79.899 Other long term (current) drug therapy; F17.200 Nicotine dependence, unspecified, uncomplicated
CPT/HCPCS: 99284; 96361; 96374; 36415; 85025; 81025; 80053; 81001; 80307; 70450; J7030; J1953

== ENCOUNTER 2019-07-09 22:38 | Emergency (ER) | payer BC ==
[2019-07-09 22:50] VITALS: BP 120/66
[2019-07-09 23:22] LABS: ABSOLUTE BASOPHILS # (AUTO) 0.1 10^3/uL (0.0-0.2); ABSOLUTE EOSINOPHILS # (AUTO) 0.2 10^3/uL (0.0-0.6); ABSOLUTE MONOCYTES (AUTO) 0.4 10^3/uL (0.1-1.4); ABSOLUTE NEUT (AUTO) 3.7 10^3/uL (1.7-8.2); BASOPHILS % (AUTO) 1.5 % (0-2); EOSINOPHILS % (AUTO) 2.6 % (0-6); HEMOGLOBIN 13.8 g/dL (12.0-15.5); LYMPHOCYTES % (AUTO) 31.3 % (13-45); MEAN CORPUSCULAR HEMOGLOBIN 28.2 pg (27.0-33.4); MEAN CORPUSCULAR HGB CONC 33.8 g/dL (32.0-36.0); MEAN CORPUSCULAR VOLUME 84 fl (80-97); PLATELET COUNT 295 10^3/uL (150-450); RED BLOOD COUNT 4.91 10^6/uL (3.72-5.28); RED CELL DISTRIBUTION WIDTH 14.7 % (11.5-14.0); SEGMENTED NEUTROPHILS % (AUTO) 57.6 % (42-78); TOTAL CELLS COUNTED % (AUTO) 100 %; WHITE BLOOD COUNT 6.3 10^3/uL (4.0-10.5)
[2019-07-09 23:39] LABS: ALBUMIN 4.1 g/dL (3.5-5.0); ALKALINE PHOSPHATASE 74 U/L (38-126); ANION GAP 11 (5-19); ASPARTATE AMINO TRANSFERASE 24 U/L (14-36); BILIRUBIN,DIRECT 0.1 mg/dL (0.0-0.4); BILIRUBIN,TOTAL 0.5 mg/dL (0.2-1.3); BLOOD UREA NITROGEN 6 mg/dL (7-20); CALCIUM 9.5 mg/dL (8.4-10.2); CARBON DIOXIDE 25 mmol/L (22-30); CHLORIDE 103 mmol/L (98-107); GLUCOSE 107 mg/dL (75-110); POTASSIUM 4.4 mmol/L (3.6-5.0)
[2019-07-09 23:40] LABS: ALCOHOL < 10 mg/dL (NONE DETECTED)
--- NOTE | 2019-07-10 00:19 | RADIOLOGY REPORT (SQ) ---
EXAM DESCRIPTION: CT HEAD WITHOUT IV CONTRAST COMPLETED DATE/TME: 07/09/2019 23:32 EXAM DESCRIPTION: CT of the head without contrast CLINICAL HISTORY: sz general pain/trauma COMPARISON: 06/19/2019 TECHNIQUE: Axial CT of the head obtained from the skull apex to the skull base without contrast. FINDINGS: No acute intracranial hemorrhage identified. No mass, mass effect, shift of the midline, abnormal extra-axial fluid collection or CT evidence of acute ischemic change identified. The ventricular system is unremarkable. No acute abnormalities of the supratentorial white matter, basal ganglia, cerebellum, or brainstem. The visualized paranasal sinuses and the mastoids are clear. No skull fracture identified. Visualized orbits and globes are unremarkable. DLP: 990.56 mGy-cm IMPRESSION: 1. No acute intracranial abnormality identified. This exam was performed according to our departmental dose-optimization program, which includes automated exposure control, adjustment of the mA and/or kV according to patient size and/or use of iterative reconstruction technique.
[2019-07-10 01:15] LABS: APPEARANCE,URINE CLOUDY; BILIRUBIN,URINE NEGATIVE (NEGATIVE); COLOR,URINE AMBER; GLUCOSE, URINE NEGATIVE (NEGATIVE); KETONES,URINE NEGATIVE (NEGATIVE); LEUKOCYTE ESTERASE,URINE LARGE (NEGATIVE); NITRITE,URINE NEGATIVE (NEGATIVE); PROTEIN,URINE 100 mg/dL (NEGATIVE); URINE SPECIFIC GRAVITY 1.027; UROBILINOGEN,URINE NEGATIVE mg/dL (<2.0)
[2019-07-10] MEDS ORDERED: NORMAL SALINE 1000 ML 1,000 ML IV ONE (01:25)
[2019-07-10 01:30] LABS: URINE AMPHETAMINES SCREEN NEGATIVE; URINE BARBITURATES SCREEN NEGATIVE; URINE BENZODIAZEPINES SCREEN NEGATIVE; URINE COCAINE SCREEN UNCONFIRMED POSITIVE; URINE MARIJUANA (THC) SCREEN UNCONFIRMED POSITIVE; URINE METHADONE SCREEN NEGATIVE; URINE PHENCYCLIDINE SCREEN NEGATIVE
[2019-07-10] MEDS ORDERED: LEVETIRACETAM 500 MG TABLET PO ONE (01:45)
[2019-07-10] MEDS ORDERED: IBUPROFEN 800 MG TABLET PO ONE (01:45)
--- NOTE | 2019-07-10 01:53 | ER Document Report ---
ED General - General Chief Complaint: Probable Seizure Stated Complaint: POSSIBLE SEIZURE Time Seen by Provider: 07/09/19 23:32 Primary Care Provider: ALVINA VILLALBA MD [NO LOCAL MD] - Follow up as needed Notes: Patient is a 39-year-old female presents to the emergency department for a possible seizure. Patient voices approximately 7:00 this morning she was standing in front of the refrigerator. States she then remembers waking up with the refrigerator door open and she was lying on the floor. States that was around approximately noon. States she is unsure if she had a seizure because she was alone. States she then got in bed because she felt overall tired. States she typically feels tired after her seizures. States she has been sleeping today until she presented to the emergency room. Patient's denying any URI symptoms, she is denying any fevers, dysuria, abdominal pain. She is complaining of a generalized headache. Denies any nausea or vomiting. Patient was seen at this facility recently for same complaint. Was placed on Keppra. States the last time she had Keppra was July 04. States she attempted to get into a neurologist but her insurance would not cover said neurologist so she has been unable to see a specialist. TRAVEL OUTSIDE OF THE [place] IN LAST 30 DAYS: No - Related Data Allergies/Adverse Reactions: erythromycin base Allergy (Verified 06/19/19 14:27) Penicillins Allergy (Verified 06/19/19 14:27) Past Medical History - General Information source: Patient - Social History Smoking Status: Current Every Day Smoker Family History: Reviewed & Not Pertinent Patient has suicidal ideation: No Patient has homicidal ideation: No Neurological Medical History: Reports: Hx Migraine, Hx Seizures Renal/ Medical History: Reports: Hx Ovarian Cysts. Denies: Hx Peritoneal Guerline lysis Musculoskeletal Medical History: Reports Hx Musculoskeletal Trauma Psychiatric Medical History: Reports: Hx Anxiety, Hx Bipolar Disorder, Hx Bor derline Personality Disorder, Hx Depression, Hx Post Traumatic Stress Disorder Traumatic Medical History: Reports: Hx Fractures - Patient states she has had a hip and multiple bones in her face fractures Past Surgical History: Reports: Hx Tubal Ligation Review of Systems - Review of Systems Constitutional: denies: Fever EENT: No symptoms reported Cardiovascular: No symptoms reported Respiratory: No symptoms reported Gastrointestinal: No symptoms reported Genitourinary: No symptoms reported Female Genitourinary: No symptoms reported Musculoskeletal: No symptoms reported Skin: No symptoms reported Hematologic/Lymphatic: No symptoms reported Neurological/Psychological: See HPI Physical Exam - Vital signs Vitals: Temp Pulse BP Pulse Ox 98.1 F 63 120/66 100 07/09/19 22:42 07/09/19 22:42 07/09/19 22:42 07/09/19 22:42 - Notes Notes: GENERAL: Alert, interacts well. No acute distress. HEAD: Normocephalic, atraumatic. EYES: Pupils equal, round, and reactive to light. Extraocular movements intact. ENT: Oral mucosa moist, tongue midline. NECK: Full range of motion. Supple. Trachea midline. LUNGS: Clear to auscultation bilaterally, no wheezes, rales, or rhonchi. No respiratory distress. HEART: Regular rate and rhythm. No murmur ABDOMEN: Soft, non-tender. Non-distended. Bowel sounds present in all 4 quadrants. EXTREMITIES: Moves all 4 extremities spontaneously. No edema, normal radial and dorsalis pedis pulses bilaterally. No cyanosis. BACK: no cervical, thoracic, lumbar midline tenderness. No saddle anesthesia, normal distal neurovascular exam. NEUROLOGICAL: Alert and oriented x3. Normal speech. cranial nerves II through XII grossly intact PSYCH: Normal affect, normal mood. SKIN: Warm, dry, normal turgor. No rashes or lesions noted. Course - Re-evaluation Re-evalutation: Laboratory 07/09/19 07/09/19 07/09/19 23:10 23:10 23:10 WBC 6.3 RBC 4.91 Hgb 13.8 Hct 41.0 MCV 84 MCH 28.2 MCHC 33.8 RDW 14.7 H Plt Count 295 Lymph % (Auto) 31.3 [place] % (Auto) 7.0 Eos % (Auto) 2.6 Baso % (Auto) 1.5 Absolute Neuts (auto) 3.7 Absolute Lymphs (auto) 2.0 Absolute Monos (auto) 0.4 Absolute Eos (auto) 0.2 Absolute Basos (auto) 0.1 Seg Neutrophils % 57.6 Sodium 138.5 Potassium 4.4 Chloride 103 Carbon Dioxide 25 Anion Gap 11 BUN 6 L Creatinine 0.70 Est GFR ( Amer) > 60 Est GFR (MDRD) Non-Af > 60 Glucose 107 Calcium 9.5 Magnesium 2.2 Total Bilirubin 0.5 Direct Bilirubin 0.1 Neonat Total Bilirubin Not Reportable Neonat Direct Bilirubin Not Reportable Neonat Indirect Bili Not Reportable AST 24 ALT 18 Alkaline Phosphatase 74 Total Protein 7.0 Albumin 4.1 Serum HCG, Qual NEGATIVE Urine Color Urine Appearance Urine pH Ur Specific [place] Urine Protein Urine Glucose (UA) Urine Ketones Urine Blood Urine Nitrite Urine Bilirubin Urine Urobilinogen Ur Leukocyte Esterase Urine WBC (Auto) Urine RBC (Auto) Squamous Epi Cells Auto Urine Mucus (Auto) Urine Ascorbic Acid Urine Opiates Screen Urine Methadone Screen Ur Barbiturates Screen Ur Phencyclidine Scrn Ur Amphetamines Screen U Benzodiazepines Scrn Urine Cocaine Screen U Marijuana (THC) Screen Serum Alcohol < 10 07/10/19 07/10/19 00:59 00:59 WBC RBC Hgb Hct MCV MCH MCHC RDW Plt Count Lymph % (Auto) [place] % (Auto) Eos % (Auto) Baso % (Auto) Absolute Neuts (auto) Absolute Lymphs (auto) Absolute Monos (auto) Absolute Eos (auto) Absolute Basos (auto) Seg Neutrophils % Sodium Potassium Chloride Carbon Dioxide Anion Gap BUN Creatinine Est GFR ( Amer) Est GFR (MDRD) Non-Af Glucose Calcium Magnesium Total Bilirubin Direct Bilirubin Neonat Total Bilirubin Neonat Direct Bilirubin Neonat Indirect Bili AST ALT Alkaline Phosphatase Total Protein Albumin Serum HCG, Qual Urine Color JUSTIN Urine Appearance CLOUDY Urine pH 5.0 Ur Specific [place] 1.027 Urine Protein 100 H Urine Glucose (UA) NEGATIVE Urine Ketones NEGATIVE Urine Blood NEGATIVE Urine Nitrite NEGATIVE Urine Bilirubin NEGATIVE Urine Urobilinogen NEGATIVE Ur Leukocyte Esterase LARGE H Urine WBC (Auto) 12 Urine RBC (Auto) 5 Squamous Epi Cells Auto 61 Urine Mucus (Auto) MANY Urine Ascorbic Acid NEGATIVE Urine Opiates Screen NEGATIVE Urine Methadone Screen NEGATIVE Ur Barbiturates Screen NEGATIVE Ur Phencyclidine Scrn NEGATIVE Ur Amphetamines Screen NEGATIVE U Benzodiazepines Scrn NEGATIVE Urine Cocaine Screen UNCONFIRMED POSITIVE U Marijuana (THC) Screen UNCONFIRMED POSITIVE Serum Alcohol Head CT 07/09/19 23:32 IMPRESSION: 1. No acute intracranial abnormality identified. This exam was performed according to our departmental dose-optimization program, which includes automated exposure control, adjustment of the mA and/or kV according to patient size and/or use of iterative reconstruction technique. Patient did present to the emergency department for suspected seizure. She was complaining of a generalized headache and lethargy. States she is typically tired after seizures but states her headache is "abnormal." States it hurts more than her headaches typically do. Patient does play she attempted to see a neurologist but her insurance would not cover it so she has not had proper follow-up. I discussed with patient calling her insurance and asking for list of neurologist letter covered in a network. Patient voices understanding. At this time will discharge with return precautions and follow-up recommendations. Verbal discharge instructions given a the bedside and opportunity for questions given. Medication warnings reviewed. Patient is in agreement with this plan and has verbalized understanding of return precautions and the need for primary care follow-up in the next 24-72 hours. This medical record was dictated with voice recognizing software. There may be grammatical, syntax errors that are unintended. - Vital Signs Vital signs: Temp Pulse Resp BP Pulse Ox 98.1 F 63 120/66 100 07/09/19 22:42 07/09/19 22:42 07/09/19 22:42 07/09/19 22:42 - Laboratory Result Diagrams: 07/09/19 23:10 07/09/19 23:10 Laboratory results interpreted by me: 07/09/19 07/09/19 07/10/19 23:10 23:10 00:59 RDW 14.7 H BUN 6 L Urine Protein 100 H Ur Leukocyte Esterase LARGE H Discharge - Discharge Clinical Impression: Seizure Condition: Stable Disposition: HOME, SELF-CARE Instructions: Seizure, Known Epileptic ([facility]) Additional Instructions: As we discussed you have been seen and treated in the emergency department after a seizure. Please make sure you are taking your Keppra as prescribed. Please also make sure you are not driving. Like we discussed you should call your insurance company to find out what kind of neurologists are covered so that you can get the proper care you need. Please return to the emergency room for any concerns. Prescriptions: Levetiracetam [Keppra 500 mg Tablet] 500 mg PO Q12 #20 tablet Forms: Return to Work Referrals: ALVINA VILLALBA MD [NO LOCAL MD] - Follow up as needed
== END 2019-07-10 01:55 | disposition home or self-care (01) ==
LOC: ER 22:38
DX: R56.9 Unspecified convulsions (principal); R53.83 Other fatigue; R51 Headache; F17.200 Nicotine dependence, unspecified, uncomplicated; Z88.1 Allergy status to other antibiotic agents; Z88.0 Allergy status to penicillin
CPT/HCPCS: 36415; 70450; 80053; 80307; 81001; 83735; 84703; 85025; 87086; 99284

== ENCOUNTER 2019-08-12 20:01 | Emergency (ER) | payer BC ==
[2019-08-12 20:10] VITALS: BP 122/77
[2019-08-12] MEDS ORDERED: DIPHENHYDRAMINE HCL 50 MG/ML VIAL IV ONE (20:27)
[2019-08-12] MEDS ORDERED: NORMAL SALINE 1000 ML 1,000 ML IV ONE (20:27)
[2019-08-12] MEDS ORDERED: KETOROLAC TROMETHAMINE INJ/PF 30 MG/1 ML SDV IV ONE (20:27)
--- NOTE | 2019-08-12 20:30 | ER Document Report ---
ED Medical Screen (RME) - General Chief Complaint: Headache Stated Complaint: FEVER Time Seen by Provider: 08/12/19 20:25 Notes: Patient is a 39-year-old female with a history of seizures who presents to the emergency department with chief complaint of headache and fever. Patient reports her last seizure was 1 month ago. Patient reports she has been out of [place] for 1 week. Patient reports she has not seen a neurologist yet. Patient reports 2 days ago a developing a migraine with fever. Patient reports fever is as high as 101. Patient says that she has had nausea and vomiting. Patient reports yesterday she vomited about 6 or 7 times. Patient reports this does feel like her typical migraine with photosensitivity. Patient reports she did last take Tylenol around 6 PM tonight. Patient denies neck pain. Patient reports she does have sick contacts at work who all have upper respiratory infections. Patient states she is not sure if she had a seizure 4 to 5 days ago but she reports standing at the refrigerator, and falling onto her right side. Patient states that her 12-year-old son did witness this and states she did not strike her head. Patient states she has had right shoulder pain since then. TRAVEL OUTSIDE OF THE [place] IN LAST 30 DAYS: No - Related Data Allergies/Adverse Reactions: erythromycin base Allergy (Verified 06/19/19 14:27) Penicillins Allergy (Verified 06/19/19 14:27) Past Medical History - Social History Frequency of alcohol use: None Drug Abuse: None Neurological Medical History: Reports: Hx Migraine, Hx Seizures Renal/ Medical History: Reports: Hx Ovarian Cysts. Denies: Hx Peritoneal Dialysis Musculoskeltal Medical History: Reports Hx Musculoskeletal Trauma Psychiatric Medical History: Reports: Hx Anxiety, Hx Bipolar Disorder, Hx Borderline Personality Disorder, Hx Depression, Hx Post Traumatic Stress Disorder Traumatic Medical History: Reports: Hx Fractures - Patient states she has had a hip and multiple bones in her face fractures Past Surgical History: Reports: Hx Tubal Ligation Physical Exam - Vital signs Vitals: Temp Pulse Resp BP Pulse Ox 98.3 F 68 20 122/77 97 08/12/19 20:09 08/12/19 20:09 08/12/19 20:09 08/12/19 20:09 08/12/19 20:09 Course - Re-evaluation Re-evalutation: 10/26/19 20:30 I have greeted and performed a rapid initial assessment of this patient. A comprehensive ED assessment and evaluation of the patient, analysis of test results and completion of the medical decision making process will be conducted by additional ED providers. - Vital Signs Vital signs: Temp Pulse Resp BP Pulse Ox 98.3 F 68 20 122/77 97 08/12/19 20:09 08/12/19 20:09 08/12/19 20:09 08/12/19 20:09 08/12/19 20:09
[2019-08-12] MEDS: METOCLOPRAMIDE HCL INJ/PF 10 MG/2 ML SDV IV ONE ×2 (20:49→20:55)
[2019-08-12] MEDS ORDERED: PROCHLORPERAZINE EDISYLATE INJ 10 MG/2 ML VIAL IV ONE (20:57)
[2019-08-12 21:02] LABS: ABSOLUTE BASOPHILS # (AUTO) 0.1 10^3/uL (0.0-0.2); ABSOLUTE EOSINOPHILS # (AUTO) 0.1 10^3/uL (0.0-0.6); ABSOLUTE LYMPHOCYTES (AUTO) 1.6 10^3/uL (0.5-4.7); ABSOLUTE MONOCYTES (AUTO) 0.4 10^3/uL (0.1-1.4); ABSOLUTE NEUT (AUTO) 3.7 10^3/uL (1.7-8.2); BASOPHILS % (AUTO) 1.1 % (0-2); HEMATOCRIT 39.1 % (36.0-47.0); HEMOGLOBIN 13.1 g/dL (12.0-15.5); LYMPHOCYTES % (AUTO) 27.9 % (13-45); MEAN CORPUSCULAR HEMOGLOBIN 27.8 pg (27.0-33.4); MEAN CORPUSCULAR HGB CONC 33.4 g/dL (32.0-36.0); MEAN CORPUSCULAR VOLUME 83 fl (80-97); PLATELET COUNT 285 10^3/uL (150-450); RED BLOOD COUNT 4.69 10^6/uL (3.72-5.28); RED CELL DISTRIBUTION WIDTH 14.4 % (11.5-14.0); TOTAL CELLS COUNTED % (AUTO) 100 %; WHITE BLOOD COUNT 5.9 10^3/uL (4.0-10.5)
--- NOTE | 2019-08-12 21:07 | ER Document Report ---
ED General - General Chief Complaint: Headache Stated Complaint: FEVER Time Seen by Provider: 08/12/19 20:25 TRAVEL OUTSIDE OF THE [place] IN LAST 30 DAYS: No - HPI Notes: 39-year-old female with a long-standing established history of migraines presents with headache. Patient describes 3 to 4 days gradual onset right frontal orbital and temporal headache, history of typical for prior migraines. Photophobia nausea and vomiting, nonradiating except as described. Several days ago she had a fever and diarrhea but these have resolved. No neck pain or stiffness. No cough, no runny nose congestion. Also she thought she had a seizure a week ago, injured her right shoulder with some sharp pain in her right posterior lateral shoulder. She has been out of her Keppra for a week, she thinks she takes a gram twice a day. Moderate intensity, gradual onset, nonradiating. No recent travel, no tick bites, no rashes. No hiking. No other modifying factors, no other associated symptoms, no other provocative or palliative factors. - Related Data Allergies/Adverse Reactions: erythromycin base Allergy (Verified 06/19/19 14:27) Penicillins Allergy (Verified 06/19/19 14:27) Past Medical History - Social History Smoking Status: Current Every Day Smoker Frequency of alcohol use: None Drug Abuse: None Family History: Reviewed & Not Pertinent Patient has suicidal ideation: No Patient has homicidal ideation: No - Medical History Notes: Includes recurrent migraines, seizures Neurological Medical History: Reports: Hx Migraine, Hx Seizures Renal/ Medical History: Reports: Hx Ovarian Cysts. Denies: Hx Peritoneal Dialysis Musculoskeletal Medical History: Reports Hx Musculoskeletal Trauma Psychiatric Medical History: Reports: Hx Anxiety, Hx Bipolar Disorder, Hx Borderline Personality Disorder, Hx Depression, Hx Post Traumatic Stress Disorder Traumatic Medical History: Reports: Hx Fractures - Patient states she has had a hip and multiple bones in her face fractures Past Surgical History: Reports: Hx Tubal Ligation Review of Systems - Review of Systems Notes: Review of systems as in the history of present illness, otherwise negative x 10 systems. Physical Exam - Vital signs Vitals: Temp Pulse Resp BP Pulse Ox 98.3 F 68 20 122/77 97 08/12/19 20:09 08/12/19 20:09 08/12/19 20:09 08/12/19 20:09 08/12/19 20:09 - Notes Notes: General: Well developed, well nourished. HEENT: Normocephalic, atraumatic. PEERL. No conjunctival injection. Neck: Supple, no significant adenopathy. No meningismus. Chest: Clear bilaterally, good air entry. Abdomen: Soft, non-tender, nondistended. Back: Non-tender. Normal ROM Extremities: No cyanosis, clubbing or edema. Vascular: Symmetric peripheral pulses, normal capillary refill. Skin: No significant rash. No petechiae or purpura. Motor: Normal tone and power. Symmetric. Neurologic: Alert and oriented to person place and time. Cranial nerves II-12 are intact. Sensation intact and symmetric in the upper and lower extremities. No cerebellar findings including finger-nose testing. No clonus. Gait normal. Funduscopic exam shows crisp disc margins, no evidence of papilledema. Course - Re-evaluation Re-evalutation: 08/12/19 21:06 39-year-old female the after mentioned symptoms, likely status migrainosus. There is no neck pain or stiffness, no high risk features that suggest meningitis with the exception of fever. Plan proceed with IV prochlorperazine, diphenhydramine, fluids. She was seen by provider in triage, additional Toradol been ordered prior to my evaluation. With regard to the patient's headache and fever, discussed potential for meningitis with her. I think this is somewhat unlikely but she understands it cannot conclusively exclude this without lumbar puncture. She is adamantly refused to proceed with this, understands the risks including delayed diagnosis and or even or permanent disability. With regard to her prior breakthrough seizure, likely due to medication noncompliance, going to refill her Keppra. Otherwise we will treat with fluids, manage migraine headache, serial exams and reevaluate. 08/12/19 22:33 Labs reviewed, grossly unremarkable. Patient had marked improvement in headache, sleeping comfortably. She is discharged home with a prescription for Keppra, outpatient follow-up. - Vital Signs Vital signs: Temp Pulse Resp BP Pulse Ox 98.3 F 68 20 122/77 97 08/12/19 20:09 08/12/19 20:09 08/12/19 20:09 08/12/19 20:09 08/12/19 20:09 - Laboratory Result Diagrams: 08/12/19 20:52 08/12/19 20:52 Laboratory results interpreted by me: 08/12/19 20:52 RDW 14.4 H Discharge - Discharge Clinical Impression: Migraine Qualifiers: Migraine type: unspecified Status migrainosus presence: with status migrainosus Intractability: not intractable Qualified Code(s): G43.901 - Migraine, unspecified, not intractable, with status migrainosus Disposition: HOME, SELF-CARE Instructions: Intravenous Compazine for Headaches ([facility]), Migraine Headache ([facility]) Prescriptions: Levetiracetam [Keppra 500 mg Tablet] 500 mg PO Q12 #60 tablet
--- NOTE | 2019-08-12 21:10 | RADIOLOGY REPORT (SQ) ---
EXAM DESCRIPTION: Right shoulder RadLex: XR SHOULDER 2 OR MORE VIEWS Views: 3 CLINICAL HISTORY: 39 years Female, fall 4-5 days ago, right shoulder pain COMPARISON: None. FINDINGS: Negative for acute fracture, dislocation, or radiopaque foreign body. IMPRESSION: 1. No acute findings.
[2019-08-12 21:21] LABS: ALBUMIN 3.9 g/dL (3.5-5.0); ALKALINE PHOSPHATASE 71 U/L (38-126); ANION GAP 8 (5-19); ASPARTATE AMINO TRANSFERASE 25 U/L (14-36); BILIRUBIN,DIRECT 0.2 mg/dL (0.0-0.4); BILIRUBIN,TOTAL 0.4 mg/dL (0.2-1.3); BLOOD UREA NITROGEN 10 mg/dL (7-20); CALCIUM 9.1 mg/dL (8.4-10.2); CARBON DIOXIDE 25 mmol/L (22-30); CHLORIDE 107 mmol/L (98-107); GLUCOSE 83 mg/dL (75-110); POTASSIUM 4.3 mmol/L (3.6-5.0); TOTAL PROTEIN 7.2 g/dL (6.3-8.2)
== END 2019-08-12 22:48 | disposition home or self-care (01) ==
LOC: ER 20:01
DX: G43.901 Migraine, unspecified, not intractable, with status migrainosus (principal); R50.9 Fever, unspecified; R11.2 Nausea with vomiting, unspecified; H53.149 Visual discomfort, unspecified; R19.7 Diarrhea, unspecified; M25.511 Pain in right shoulder; F17.200 Nicotine dependence, unspecified, uncomplicated
CPT/HCPCS: 99283; 96361; 96374; 96375; 36415; 84703; 85025; 80053; 73030; J1200; J1885; J0780; J7030; J2765

== ENCOUNTER 2019-11-29 11:13 | Inpatient (IN) | payer BC ==
[2019-11-29] MEDS ORDERED: KETOROLAC TROMETHAMINE INJ/PF 30 MG/1 ML SDV IV ONE ×2 (12:54→13:50)
[2019-11-29] MEDS ORDERED: ONDANSETRON HCL INJ/PF 4 MG/2 ML SDV IV ONE (12:54)
[2019-11-29] MEDS ORDERED: CLINDAMYCIN 600 MG/D5W RTU 600 MG/50 ML RTUPB IV ONE (12:55)
--- NOTE | 2019-11-29 12:58 | ER Document Report ---
ED Medical Screen (RME) - General Chief Complaint: Abscess Stated Complaint: SWOLLEN FACE-RIGHT SIDE Time Seen by Provider: 11/29/19 12:48 Notes: Patient is a 39-year-old female who presents emergency department with a chief complaint of right lower facial swelling. Patient reports on Wednesday she noticed a pimple to her right lower chin. She reports she did attempt to pop this and has been picking at it since. Patient reports increased redness and swelling to the site and pain that radiates into her right lower neck. Patient reports 103 fever at home that started yesterday. Patient states she did take ibuprofen around 10 AM this morning. Patient denies difficulty swallowing. Patient is currently on Suboxone. Patient reports she does have a history of IV drug use, has been clean for about 3 years. Patient denies any recent IV drug use. TRAVEL OUTSIDE OF THE [place] IN LAST 30 DAYS: No - Related Data Allergies/Adverse Reactions: erythromycin base Allergy (Verified 11/29/19 12:51) Penicillins Allergy (Verified 11/29/19 12:51) Past Medical History - Social History Frequency of alcohol use: None Drug Abuse: Heroin, Prescription drugs, Other Neurological Medical History: Reports: Hx Migraine, Hx Seizures Renal/ Medical History: Reports: Hx Ovarian Cysts. Denies: Hx Peritoneal Dialysis Musculoskeltal Medical History: Reports Hx Musculoskeletal Trauma Psychiatric Medical History: Reports: Hx Anxiety, Hx Bipolar Disorder, Hx Borderline Personality Disorder, Hx Depression, Hx Post Traumatic Stress Disorder Traumatic Medical History: Reports: Hx Fractures - Patient states she has had a hip and multiple bones in her face fractures Past Surgical History: Reports: Hx Tubal Ligation Physical Exam - Vital signs Vitals: Temp Pulse Resp BP Pulse Ox 99.4 F 94 18 154/82 H 95 11/29/19 11:33 11/29/19 11:33 11/29/19 11:33 11/29/19 11:33 11/29/19 11:33 Course - Re-evaluation Re-evalutation: 11/29/19 12:57 Patient has significant right lower facial swelling and redness. Will obtain basic labs, lactate, initiate IV clindamycin. Patient is allergic to erythromycin but reports taking clindamycin in the past without any issues or allergic reaction. Also give Toradol. I have ordered a CT soft tissue neck to rule out abscess and to further investigate the right lower facial swelling. I have greeted and performed a rapid initial assessment of this patient. A comprehensive ED assessment and evaluation of the patient, analysis of test results and completion of the medical decision making process will be conducted by additional ED providers. - Vital Signs Vital signs: Temp Pulse Resp BP Pulse Ox 99.4 F 94 18 154/82 H 95 11/29/19 11:33 11/29/19 11:33 11/29/19 11:33 11/29/19 11:33 11/29/19 11:33
[2019-11-29] MEDS ORDERED: KETOROLAC TROMETHAMINE 60 MG/2 ML SDV IM ONE (13:32)
[2019-11-29 14:39] LABS: ABSOLUTE BASOPHILS # (AUTO) 0.1 10^3/uL (0.0-0.2); ABSOLUTE EOSINOPHILS # (AUTO) 0.1 10^3/uL (0.0-0.6); ABSOLUTE LYMPHOCYTES (AUTO) 1.4 10^3/uL (0.5-4.7); ABSOLUTE MONOCYTES (AUTO) 0.7 10^3/uL (0.1-1.4); ABSOLUTE NEUT (AUTO) 12.4 10^3/uL (1.7-8.2); BASOPHILS % (AUTO) 0.5 % (0-2); EOSINOPHILS % (AUTO) 0.7 % (0-6); HEMATOCRIT 42.8 % (36.0-47.0); HEMOGLOBIN 14.7 g/dL (12.0-15.5); LYMPHOCYTES % (AUTO) 9.7 % (13-45); MEAN CORPUSCULAR HEMOGLOBIN 29.3 pg (27.0-33.4); MEAN CORPUSCULAR HGB CONC 34.2 g/dL (32.0-36.0); MEAN CORPUSCULAR VOLUME 86 fl (80-97); PLATELET COUNT 348 10^3/uL (150-450); RED BLOOD COUNT 5.01 10^6/uL (3.72-5.28); RED CELL DISTRIBUTION WIDTH 14.5 % (11.5-14.0); SEGMENTED NEUTROPHILS % (AUTO) 84.1 % (42-78); TOTAL CELLS COUNTED % (AUTO) 100 %; WHITE BLOOD COUNT 14.7 10^3/uL (4.0-10.5)
[2019-11-29 14:59] LABS: ALBUMIN 4.5 g/dL (3.5-5.0); ALKALINE PHOSPHATASE 106 U/L (38-126); ANION GAP 10 (5-19); ASPARTATE AMINO TRANSFERASE 18 U/L (14-36); BILIRUBIN,DIRECT 0.4 mg/dL (0.0-0.4); BILIRUBIN,TOTAL 0.9 mg/dL (0.2-1.3); BLOOD UREA NITROGEN 9 mg/dL (7-20); CALCIUM 9.7 mg/dL (8.4-10.2); CARBON DIOXIDE 29 mmol/L (22-30); CHLORIDE 99 mmol/L (98-107); GLUCOSE 109 mg/dL (75-110); TOTAL PROTEIN 8.3 g/dL (6.3-8.2)
--- NOTE | 2019-11-29 15:17 | RADIOLOGY REPORT (SQ) ---
EXAM DESCRIPTION: CT SOFT TISSUE NECK WITH COMPLETED DATE/TIME: 11/29/2019 2:36 pm REASON FOR STUDY: right lower facial swelling/redness COMPARISON: None. TECHNIQUE: Post IV contrasted scanning from skull base through lung apices with review of bone, soft tissue and lung windows. Reconstructed coronal and sagittal MPR images reviewed. All images stored on PACS. All CT scanners at this facility use dose modulation, iterative reconstruction, and/or weight based d osing when appropriate to reduce radiation dose to as low as reasonably achievable (ALARA). [facility]: Dose Right [facility]: CareDose [facility]: Dose Right [facility]: Teradose 4D [facility]: Specle CONTRAST TYPE AND DOSE: 100mL Omnipaque 350 RENAL FUNCTION: None required. The patient is less than 50 years old. RADIATION DOSE: CT Rad equipment meets quality standard of care and radiation dose reduction techniq ues were employed. CTDIvol: 14.6 mGy. DLP: 483 mGy-cm. mGy. LIMITATIONS: None. FINDINGS: SKULL BASE: Intact. MAJOR SALIVARY GLANDS: No solid or cystic masses. No inflammatory changes. LYMPHADENOPATHY: Prominent but non pathologically enlarged submandibular and proximal cervical lymph nodes, likely reactive. No discrete adenopathy. MUCOSAL MASSES OR ASYMMETRY: No mucosal masses or asymmetry. LARYNX/CORDS: No abnormal findings. VASCULAR STRUCTURES: The major vessels are patent. LUNG APICES: Clear. BONES: Intact. THYROID: Normal size. No masses. PARANASAL SINUSES: Clear. OTHER: There is extensive ill-defined subcutaneous stranding and edema involving the right lateral an d paramedian mid mandibular subcutaneous tissues. No discrete well-formed drainable collection. No additional soft tissue masses. IMPRESSION: Extensive ill-defined subcutaneous stranding and edema involving the right lateral and p aramedian mandibular subcutaneous tissue suggestive of cellulitis. No focal drainable collection. N o discrete mass. Prominent submandibular and cervical nodes, likely reactive. No discrete adenopathy. TECHNICAL DOCUMENTATION: JOB ID: [id number] RS [id number]: Final reports with documentation of one or more dose reduction techniques (e.g., Automate d exposure control, adjustment of the mA and/or kV according to patient size, use of iterative recons truction technique) 2010 [employer] ([employer])- All Rights Reserved Reading location - IP/workstation name: [email or web address]
--- NOTE | 2019-11-29 15:53 | ER Document Report ---
ED General - General Chief Complaint: Abscess Stated Complaint: SWOLLEN FACE-RIGHT SIDE Time Seen by Provider: 11/29/19 12:48 Notes: 39-year-old female presents with right lower facial swelling. Patient states she had a pimple that she noticed on Wednesday that she popped and has been picking at it since and states the swelling got worse. Patient states her fever has gotten as high as 103 degrees states she has been taking ibuprofen for this. Patient has a history of IV drug abuse and has been clean for 3 years and is currently on Suboxone for the same. Patient denies any history of diabetes or HIV. Patient denies any difficulty with swallowing. TRAVEL OUTSIDE OF THE [place] IN LAST 30 DAYS: No - Related Data Allergies/Adverse Reactions: erythromycin base Allergy (Verified 11/29/19 12:51) Penicillins Allergy (Verified 11/29/19 12:51) Past Medical History - Social History Smoking Status: Current Every Day Smoker Frequency of alcohol use: None Drug Abuse: Heroin, Prescription drugs, Other Family History: Reviewed & Not Pertinent Patient has suicidal ideation: No Patient has homicidal ideation: No Neurological Medical History: Reports: Hx Migraine, Hx Seizures Renal/ Medical History: Reports: Hx Ovarian Cysts. Denies: Hx Peritoneal Dialysis Musculoskeletal Medical History: Reports Hx Musculoskeletal Trauma Psychiatric Medical History: Reports: Hx Anxiety, Hx Bipolar Disorder, Hx Borderline Personality Disorder, Hx Depression, Hx Post Traumatic Stress Dis order Traumatic Medical History: Reports: Hx Fractures - Patient states she has had a hip and multiple bones in her face fractures Past Surgical History: Reports: Hx Tubal Ligation Review of Systems - Review of Systems Notes: Constitutional: Negative for fever. HENT: Positive for right facial swelling. Negative for sore throat. Eyes: Negative for visual changes. Cardiovascular: Negative for chest pain. Respiratory: Negative for shortness of breath. Gastrointestinal: Negative for abdominal pain, vomiting or diarrhea. Genitourinary: Negative for dysuria. Musculoskeletal: Negative for back pain. Skin: Negative for rash. Neurological: Negative for headaches, weakness or numbness. 10 point ROS negative except as marked above and in HPI. Physical Exam - Vital signs Vitals: Temp Pulse Resp BP Pulse Ox 99.4 F 94 18 154/82 H 95 11/29/19 11:33 11/29/19 11:33 11/29/19 11:33 11/29/19 11:33 11/29/19 11:33 - Notes Notes: GENERAL: Well-appearing, well-nourished and in no acute distress. HEAD: Atraumatic, normocephalic. Right facial swelling with erythema noted to right lower mandibular area and extending into the cheek. Right lymphadenopathy noted. No tenderness to submandibular area. Patient speaks full sentences without difficulty. EYES: Pupils equal round and reactive to light, extraocular movements intact, sclera anicteric, conjunctiva are normal. NECK: Normal range of motion, supple without lymphadenopathy or JVD. EXTREMITIES: Normal range of motion, no pitting or edema. No clubbing or cyanosis. NEUROLOGICAL: Cranial nerves II through XII grossly intact. Normal speech, normal gait. PSYCH: Normal mood, normal affect. SKIN: Warm, Dry, normal turgor, no rashes or lesions noted. Course - Re-evaluation Re-evalutation: 11/29/19 16:05 Discussed with attending, Dr. Rosenbaum, who also evaluated pt. Recommends adding vancomycin and admission to hospitalist service. 11/29/19 16:08 Spoke to lead hospitalist CAR CHECKER Mee who states this admission will go to Dr. Trejo. Spoke to Dr. Trejo who accepted pt for admission. - Vital Signs Vital signs: Temp Pulse Resp BP Pulse Ox 99.4 F 94 18 154/82 H 95 11/29/19 11:33 11/29/19 11:33 11/29/19 11:33 11/29/19 11:33 11/29/19 11:33 - Laboratory Result Diagrams: 11/29/19 14:12 11/29/19 14:12 Laboratory results interpreted by me: 11/29/19 11/29/19 14:12 14:12 WBC 14.7 H RDW 14.5 H Lymph % (Auto) 9.7 L Absolute Neuts (auto) 12.4 H Seg Neutrophils % 84.1 H Total Protein 8.3 H Discharge - Discharge Clinical Impression: Cellulitis of face Condition: Stable Disposition: ADMITTED INPATIENT Admitting Provider: Maya (Hospitalist) Unit Admitted: Medical Floor
[2019-11-29] MEDS ORDERED: VANCOMYCIN HCL INJ 1000 MG VIAL IV ONE (16:05)
[2019-11-29] MEDS ORDERED: TRAMADOL HCL 50 MG TABLET PO ONE (16:44)
[2019-11-29] MEDS ORDERED: ACETAMINOPHEN 325 MG TABLET PO PRN (17:19)
[2019-11-29] MEDS ORDERED: ONDANSETRON HCL INJ/PF 4 MG/2 ML SDV IV PRN (17:19)
[2019-11-29] MEDS ORDERED: IPRATROPIUM/ALBUTEROL 0.5-2.5 MG/3 ML AMPUL NEB PRN (17:19)
[2019-11-29] MEDS ORDERED: MAG HYDROX/AL HYDROX/SIMETH SUSP 30 ML UDCUP PO PRN (17:19)
--- NOTE | 2019-11-29 17:25 | PDOC H&P ---
History of Present Illness Admission Date/PCP: 11/29/19 16:16 History of Present Illness: STEPHEN MANCINI is a 39 year old female past medical history of IV drug abuse on Suboxone, bipolar depression, seizure disorder, hypertension presented to ED complaining of right facial pain and swelling. Stating that she had an ingrown hair on the right side of her chin on Wednesday which she pulled out following 2 days she noted that right face was starting to swell up, become erythematous, and exquisitely tender. Right facial pain radiating to the neck, proximity to the ears and right cheek. Associated symptoms are fever, chills, nausea and vomiting. Patient is p.o. tolerant, denies any shortness of breath, denies any sore throat, any chest pain, abdominal pain, diarrhea, constipation or any urinary symptoms. Denies any recent hospitalization, sick contact or any recent travel. Past Medical History Neurological Medical History: Reports: Migraine, Seizures Psychiatric Medical History: Reports: Bipolar Disorder, Depression, Post Traumatic Stress Disorder Past Surgical History Past Surgical History: Reports: Tubal Ligation Social History Smoking Status: Current Every Day Smoker Family History Family History: Reviewed & Not Pertinent Parental Family History Reviewed: Yes Children Family History Reviewed: Yes Sibling(s) Family History Reviewed.: Yes Medication/Allergy Allergies/Adverse Reactions: erythromycin base Allergy (Verified 11/29/19 12:51) Penicillins Allergy (Verified 11/29/19 12:51) Review of Systems Review of Systems: as per hpi Physical Exam Vital Signs: Temp Pulse Resp BP Pulse Ox 99.4 F 94 18 154/82 H 95 11/29/19 11:33 11/29/19 11:33 11/29/19 11:33 11/29/19 11:33 11/29/19 11:33 Intake & Output 11/28/19 11/29/19 11/30/19 06:59 06:59 06:59 Intake Total 50 Balance 50 Weight 66.4 kg General appearance: PRESENT: no acute distress, well-developed, well-nourished Head exam: PRESENT: atraumatic, normocephalic Adult Head Front/Back Image: 1 - Swelling, tenderness, erythema. Respiratory exam: PRESENT: clear to auscultation mike. ABSENT: rales, rhonchi, wheezes Cardiovascular exam: PRESENT: RRR. ABSENT: diastolic murmur, rubs, systolic murmur Pulses: PRESENT: normal dorsalis pedis pul GI/Abdominal exam: PRESENT: normal bowel sounds, soft. ABSENT: distended, guarding, mass, organolmegaly, rebound, tenderness Neurological exam: PRESENT: alert, awake, oriented to person, oriented to place, oriented to time, oriented to situation, CN II-XII grossly intact. ABSENT: motor sensory deficit Skin exam: PRESENT: dry, intact, warm. ABSENT: cyanosis, rash Results Laboratory Results: 11/29/19 14:12 11/29/19 14:12 11/29/19 11/29/19 11/29/19 14:12 14:12 14:12 WBC 14.7 H RBC 5.01 Hgb 14.7 Hct 42.8 MCV 86 MCH 29.3 MCHC 34.2 RDW 14.5 H Plt Count 348 Seg Neutrophils % 84.1 H Sodium 138.0 Potassium 4.0 Chloride 99 Carbon Dioxide 29 Anion Gap 10 BUN 9 Creatinine 0.56 Est GFR ( Amer) > 60 Glucose 109 Lactic Acid 1.1 Calcium 9.7 Total Bilirubin 0.9 AST 18 Alkaline Phosphatase 106 Total Protein 8.3 H Albumin 4.5 Impressions: Soft Tissue Neck CT 11/29/19 12:55 IMPRESSION: Extensive ill-defined subcutaneous stranding and edema involving the right lateral and paramedian mandibular subcutaneous tissue suggestive of cellulitis. No focal drainable collection. No discrete mass. Prominent submandibular and cervical nodes, likely reactive. No discrete adenopathy. Assessment and Plan - Diagnosis (1) Facial cellulitis Is this a current diagnosis for this admission?: Yes Plan: Right facial cellulitis likely polymicrobial source skin. Empiric broad-spectrum IV antibiotics to cover staph and strep and MRSA. Wound and blood culture. Wound care. Monitor for airway compromise. (2) Bipolar depression Is this a current diagnosis for this admission?: Yes Plan: Denies any suicidal or homicidal ideation. Restart home meds. (3) Seizure disorder Is this a current diagnosis for this admission?: Yes Plan: Last seizure in September 2019. Takes Keppra 500 mg p.o. twice daily. Restart home meds. Fall, aspiration and seizure precautions. PRN benzos. (4) Hypertension Is this a current diagnosis for this admission?: Yes Plan: Takes clonidine at home. Restart home meds. PRN hydralazine and metoprolol. (5) History of intravenous drug use in remission Is this a current diagnosis for this admission?: Yes Plan: On Suboxone 8 mg p.o. twice daily. Start home meds. Encouraged abstinence.
[2019-11-29] MEDS ORDERED: VANCOMYCIN HCL 0 MG in DEXTROSE 5%-WATER 250 ML IV NR (17:30)
[2019-11-29] MEDS ORDERED: METOPROLOL TARTRATE PF/INJ 5 MG/5 ML SDV IV PRN (17:51)
[2019-11-29] MEDS ORDERED: HYDRALAZINE HCL INJ/PF 20 MG/1 ML SDV IV PRN (17:51)
[2019-11-29] MEDS: MORPHINE SULFATE 10 MG/ML INJ IV PRN (18:26)
[2019-11-29] MEDS: DOCUSATE SODIUM 100 MG CAPSULE PO SCH (18:27)
[2019-11-29] MEDS: BUPRENORPHINE HCL 2 MG SUBLINGUAL TABLET SL SCH (18:42)
[2019-11-29] MEDS: LEVETIRACETAM 500 MG TABLET PO SCH (21:29)
[2019-11-29] MEDS: FAMOTIDINE 20 MG TABLET PO SCH (21:29)
[2019-11-29] MEDS: OXYCODONE-ACETAMINOPHEN 5-325 MG TABLET PO PRN (21:29)
[2019-11-29] MEDS: TEMAZEPAM 7.5 MG CAPSULE PO PRN (21:30)
[2019-11-29] MEDS: CLINDAMYCIN 600 MG/D5W RTU 600 MG/50 ML RTUPB IV SCH (21:30)
[2019-11-29] MEDS: DEXTROSE 5%-NORMAL SALINE 1,000 ML IV PRN (21:31)
[2019-11-30] MEDS: KETOROLAC TROMETHAMINE INJ/PF 30 MG/1 ML SDV IV PRN ×2 (04:49→21:19)
[2019-11-30] MEDS: OXYCODONE-ACETAMINOPHEN 5-325 MG TABLET PO PRN ×4 (04:50→21:18)
[2019-11-30] MEDS: CLINDAMYCIN 600 MG/D5W RTU 600 MG/50 ML RTUPB IV SCH ×3 (05:20→21:17)
[2019-11-30 06:21] LABS: ABSOLUTE EOSINOPHILS # (AUTO) 0.2 10^3/uL (0.0-0.6); ABSOLUTE MONOCYTES (AUTO) 0.9 10^3/uL (0.1-1.4); ABSOLUTE NEUT (AUTO) 9.6 10^3/uL (1.7-8.2); BASOPHILS % (AUTO) 0.3 % (0-2); EOSINOPHILS % (AUTO) 1.5 % (0-6); HEMATOCRIT 36.4 % (36.0-47.0); MEAN CORPUSCULAR HEMOGLOBIN 29.3 pg (27.0-33.4); MEAN CORPUSCULAR HGB CONC 34.5 g/dL (32.0-36.0); MEAN CORPUSCULAR VOLUME 85 fl (80-97); MONOCYTES % (AUTO) 7.4 % (3-13); PLATELET COUNT 263 10^3/uL (150-450); RED BLOOD COUNT 4.29 10^6/uL (3.72-5.28); RED CELL DISTRIBUTION WIDTH 14.4 % (11.5-14.0); SEGMENTED NEUTROPHILS % (AUTO) 74.8 % (42-78); TOTAL CELLS COUNTED % (AUTO) 100 %; WHITE BLOOD COUNT 12.8 10^3/uL (4.0-10.5)
[2019-11-30] MEDS: VANCOMYCIN HCL 1,000 MG in DEXTROSE 5%-WATER 250 ML IV SCH ×2 (06:25→18:00)
[2019-11-30 06:28] LABS: HEMOGLOBIN 12.6 g/dL (12.0-15.5)
[2019-11-30 06:46] LABS: ALBUMIN 3.4 g/dL (3.5-5.0); ALKALINE PHOSPHATASE 79 U/L (38-126); ANION GAP 9 (5-19); ASPARTATE AMINO TRANSFERASE 20 U/L (14-36); BILIRUBIN,DIRECT 0.4 mg/dL (0.0-0.4); BILIRUBIN,TOTAL 0.7 mg/dL (0.2-1.3); BLOOD UREA NITROGEN 8 mg/dL (7-20); CALCIUM 8.5 mg/dL (8.4-10.2); CARBON DIOXIDE 27 mmol/L (22-30); CHLORIDE 101 mmol/L (98-107); GLUCOSE 94 mg/dL (75-110); POTASSIUM 3.6 mmol/L (3.6-5.0); TOTAL PROTEIN 6.7 g/dL (6.3-8.2)
[2019-11-30] MEDS ORDERED: SERTRALINE HCL 50 MG TABLET PO SCH (10:00)
[2019-11-30] MEDS: ENOXAPARIN SODIUM INJ 40 MG/0.4 ML DISP.SYRIN SUBCUT SCH (10:18)
[2019-11-30] MEDS: LEVETIRACETAM 500 MG TABLET PO SCH ×2 (10:19→21:18)
[2019-11-30] MEDS: FAMOTIDINE 20 MG TABLET PO SCH ×2 (10:20→21:18)
[2019-11-30] MEDS: DOCUSATE SODIUM 100 MG CAPSULE PO SCH ×2 (10:20→17:52)
[2019-11-30] MEDS: BUPRENORPHINE HCL 2 MG SUBLINGUAL TABLET SL SCH (10:23)
[2019-11-30] MEDS ORDERED: ONDANSETRON HCL INJ/PF 4 MG/2 ML SDV IV PRN (11:00)
[2019-11-30] MEDS: DEXTROSE 5%-NORMAL SALINE 1,000 ML IV PRN (11:36)
--- NOTE | 2019-11-30 11:50 | PDOC PROGRESS REPORT ---
Subjective Progress Note for:: 11/30/19 Subjective:: STEPHEN MANCINI is a 39 year old female past medical history of IV drug abuse on Suboxone, bipolar depression, seizure disorder, hypertension presented to ED complaining of right facial pain and swelling. Stating that she had an ingrown hair on the right side of her chin on Wednesday which she pulled out following 2 days she noted that right face was starting to swell up, become erythematous, and exquisitely tender. Right facial pain radiating to the neck, proximity to the ears and right cheek. Associated symptoms are fever, chills, nausea and vomiting. Patient is p.o. tolerant, denies any shortness of breath, denies any sore throat, any chest pain, abdomi nal pain, diarrhea, constipation or any urinary symptoms. Denies any recent hospitalization, sick contact or any recent travel. 11/30/2019. Was febrile last night otherwise right facial swelling and pain improving mildly, denies any nausea, vomiting, diarrhea, constipation or any urinary symptoms. P.o. tolerant. Denies any shortness of breath or chest pain. Reason For Visit: FACIAL CELLULITIS Physical Exam Vital Signs: Temp Pulse Resp BP Pulse Ox 98.3 F 69 16 120/60 98 11/30/19 08:00 11/30/19 08:00 11/30/19 08:00 11/30/19 08:00 11/30/19 08:00 Intake & Output 11/29/19 11/30/19 12/01/19 06:59 06:59 06:59 Intake Total 750 1000 Output Total 700 Balance 50 1000 Weight 87.5 kg General appearance: PRESENT: no acute distress, well-developed, well-nourished Head exam: PRESENT: atraumatic, normocephalic Head Image: 1 - Erythema, swelling, tenderness. Respiratory exam: PRESENT: clear to auscultation mike. ABSENT: rales, rhonchi, wheezes Cardiovascular exam: PRESENT: RRR. ABSENT: diastolic murmur, rubs, systolic murmur GI/Abdominal exam: PRESENT: normal bowel sounds, soft. ABSENT: distended, guarding, mass, organolmegaly, rebound, tenderness Neurological exam: PRESENT: alert, awake, oriented to person, oriented to place, oriented to time, oriented to situation, CN II-XII grossly intact. ABSENT: motor sensory deficit Results Laboratory Results: 11/30/19 04:38 11/30/19 04:38 11/29/19 11/29/19 11/29/19 14:12 14:12 14:12 WBC 14.7 H RBC 5.01 Hgb 14.7 Hct 42.8 MCV 86 MCH 29.3 MCHC 34.2 RDW 14.5 H Plt Count 348 Seg Neutrophils % 84.1 H Sodium 138.0 Potassium 4.0 Chloride 99 Carbon Dioxide 29 Anion Gap 10 BUN 9 Creatinine 0.56 Est GFR ( Amer) > 60 Glucose 109 Lactic Acid 1.1 Calcium 9.7 Magnesium Total Bilirubin 0.9 AST 18 Alkaline Phosphatase 106 C-Reactive Protein Total Protein 8.3 H Albumin 4.5 11/29/19 11/30/19 11/30/19 14:12 04:38 04:38 WBC 12.8 H RBC 4.29 Hgb 12.6 D Hct 36.4 MCV 85 MCH 29.3 MCHC 34.5 RDW 14.4 H Plt Count 263 Seg Neutrophils % 74.8 Sodium 137.1 Potassium 3.6 Chloride 101 Carbon Dioxide 27 Anion Gap 9 BUN 8 Creatinine 0.46 L Est GFR ( Amer) > 60 Glucose 94 Lactic Acid Calcium 8.5 Magnesium 2.0 Total Bilirubin 0.7 AST 20 Alkaline Phosphatase 79 C-Reactive Protein 68.8 H Total Protein 6.7 Albumin 3.4 L Impressions: Soft Tissue Neck CT 11/29/19 12:55 IMPRESSION: Extensive ill-defined subcutaneous stranding and edema involving the right lateral and paramedian mandibular subcutaneous tissue suggestive of cellulitis. No focal drainable collection. No discrete mass. Prominent submandibular and cervical nodes, likely reactive. No discrete adenopathy. Assessment and Plan - Diagnosis (1) Facial cellulitis Is this a current diagnosis for this admission?: Yes Plan: Mild improvement still has significant erythema and tenderness. Right facial cellulitis likely polymicrobial source skin. Empiric broad-spectrum IV antibiotics to cover staph and strep and MRSA. Wound and blood culture. Wound care. Monitor for airway compromise. (2) Bipolar depression Is this a current diagnosis for this admission?: Yes Plan: Denies any suicidal or homicidal ideation. Restart home meds. (3) Seizure disorder Is this a current diagnosis for this admission?: Yes Plan: Last seizure in September 2019. Takes Keppra 500 mg p.o. twice daily. Restart home meds. Fall, aspiration and seizure precautions. PRN benzos. (4) Hypertension Is this a current diagnosis for this admission?: Yes Plan: Takes clonidine at home. Restart home meds. PRN hydralazine and metoprolol. (5) History of intravenous drug use in remission Is this a current diagnosis for this admission?: Yes Plan: On Suboxone 8 mg p.o. twice daily. Start home meds. Encouraged abstinence.
[2019-11-30] MEDS ORDERED: BUPRENORPHINE HCL PO SCH (18:00)
[2019-11-30] MEDS ORDERED: [UNRECOGNIZED DRUG - OTHER] PO SCH (18:00)
[2019-11-30] MEDS ORDERED: NALOXONE HCL PO SCH (18:00)
[2019-11-30] MEDS: CLONIDINE HCL 0.1 MG TABLET PO SCH (21:16)
[2019-11-30] MEDS: TEMAZEPAM 7.5 MG CAPSULE PO PRN (21:18)
[2019-12-01] MEDS: KETOROLAC TROMETHAMINE INJ/PF 30 MG/1 ML SDV IV PRN ×3 (03:10→18:39)
[2019-12-01] MEDS: OXYCODONE-ACETAMINOPHEN 5-325 MG TABLET PO PRN ×3 (03:10→21:18)
[2019-12-01] MEDS: CLINDAMYCIN 600 MG/D5W RTU 600 MG/50 ML RTUPB IV SCH (05:32)
[2019-12-01 05:43] LABS: ABSOLUTE BASOPHILS # (AUTO) 0.1 10^3/uL (0.0-0.2); ABSOLUTE EOSINOPHILS # (AUTO) 0.4 10^3/uL (0.0-0.6); ABSOLUTE LYMPHOCYTES (AUTO) 1.5 10^3/uL (0.5-4.7); ABSOLUTE MONOCYTES (AUTO) 0.8 10^3/uL (0.1-1.4); ABSOLUTE NEUT (AUTO) 7.4 10^3/uL (1.7-8.2); BASOPHILS % (AUTO) 0.8 % (0-2); EOSINOPHILS % (AUTO) 3.5 % (0-6); HEMATOCRIT 34.4 % (36.0-47.0); HEMOGLOBIN 11.9 g/dL (12.0-15.5); LYMPHOCYTES % (AUTO) 14.7 % (13-45); MEAN CORPUSCULAR HEMOGLOBIN 29.5 pg (27.0-33.4); MEAN CORPUSCULAR HGB CONC 34.7 g/dL (32.0-36.0); MEAN CORPUSCULAR VOLUME 85 fl (80-97); MONOCYTES % (AUTO) 7.7 % (3-13); PLATELET COUNT 285 10^3/uL (150-450); RED BLOOD COUNT 4.05 10^6/uL (3.72-5.28); RED CELL DISTRIBUTION WIDTH 14.2 % (11.5-14.0); SEGMENTED NEUTROPHILS % (AUTO) 73.3 % (42-78); TOTAL CELLS COUNTED % (AUTO) 100 %; WHITE BLOOD COUNT 10.1 10^3/uL (4.0-10.5)
[2019-12-01 06:24] LABS: ANION GAP 10 (5-19); BLOOD UREA NITROGEN 9 mg/dL (7-20); CALCIUM 8.8 mg/dL (8.4-10.2); CARBON DIOXIDE 26 mmol/L (22-30); CHLORIDE 101 mmol/L (98-107); GLUCOSE 97 mg/dL (75-110); POTASSIUM 3.8 mmol/L (3.6-5.0)
[2019-12-01 06:28] LABS: VANCOMYCIN,TROUGH 9.9 ug/mL (5.0-20.0)
[2019-12-01] MEDS: VANCOMYCIN HCL 1,000 MG in DEXTROSE 5%-WATER 250 ML IV SCH (06:41)
[2019-12-01] MEDS: ENOXAPARIN SODIUM INJ 40 MG/0.4 ML DISP.SYRIN SUBCUT SCH (10:37)
[2019-12-01] MEDS: LEVETIRACETAM 500 MG TABLET PO SCH ×2 (10:41→21:16)
[2019-12-01] MEDS: FAMOTIDINE 20 MG TABLET PO SCH ×2 (10:41→21:15)
[2019-12-01] MEDS: SERTRALINE HCL 50 MG TABLET PO SCH (10:41)
[2019-12-01] MEDS: DOCUSATE SODIUM 100 MG CAPSULE PO SCH ×2 (10:41→18:39)
[2019-12-01] MEDS: DEXTROSE 5%-NORMAL SALINE 1,000 ML IV PRN (10:42)
[2019-12-01] MEDS: BUPRENORPHINE HCL 2 MG SUBLINGUAL TABLET SL SCH ×2 (12:00→18:39)
--- NOTE | 2019-12-01 12:06 | PDOC PROGRESS REPORT ---
Subjective Progress Note for:: 12/01/19 Subjective:: STEPHEN MANCINI is a 39 year old female past medical history of IV drug abuse on Suboxone, bipolar depression, seizure disorder, hypertension presented to ED complaining of right facial pain and swelling. Stating that she had an ingrown hair on the right side of her chin on Wednesday which she pulled out following 2 days she noted that right face was starting to swell up, become erythematous, and exquisitely tender. Right facial pain radiating to the neck, proximity to the ears and right cheek. Associated symptoms are fever, chills, nausea and vomiting. Patient is p.o. tolerant, denies any shortness of breath, denies any sore throat, any chest pain, abdomi nal pain, diarrhea, constipation or any urinary symptoms. Denies any recent hospitalization, sick contact or any recent travel. 11/30/2019. Was febrile last night otherwise right facial swelling and pain improving mildly, denies any nausea, vomiting, diarrhea, constipation or any urinary symptoms. P.o. tolerant. Denies any shortness of breath or chest pain. 12/01/2019. No acute events overnight. Patient still complaining of persistent right facial pain otherwise denies any fever, chills, nausea, vomiting, diarrhea, constipation or any urinary symptoms. P.o. tolerant. Denies any shortness of breath. Reason For Visit: FACIAL CELLULITIS Physical Exam Vital Signs: Temp Pulse Resp BP Pulse Ox 97.9 F 87 14 83/52 L 99 12/01/19 08:00 12/01/19 08:00 12/01/19 08:00 12/01/19 08:00 12/01/19 08:00 Intake & Output 11/30/19 12/01/19 12/02/19 06:59 06:59 06:59 Intake Total 750 4381 250 Output Total 700 Balance 50 4381 250 Weight 87.5 kg General appearance: PRESENT: no acute distress, well-developed, well-nourished Head exam: PRESENT: atraumatic, normocephalic Head Image: 1 - Swelling and tenderness. Respiratory exam: PRESENT: clear to auscultation mike. ABSENT: rales, rhonchi, wheezes Cardiovascular exam: PRESENT: RRR. ABSENT: diastolic murmur, rubs, systolic murmur GI/Abdominal exam: PRESENT: normal bowel sounds, soft. ABSENT: distended, guarding, mass, organolmegaly, rebound, tenderness Neurological exam: PRESENT: alert, awake, oriented to person, oriented to place, oriented to time, oriented to situation, CN II-XII grossly intact. ABSENT: motor sensory deficit Results Laboratory Results: 12/01/19 04:06 12/01/19 04:06 12/01/19 12/01/19 12/01/19 04:06 04:06 04:06 WBC 10.1 RBC 4.05 Hgb 11.9 L Hct 34.4 L MCV 85 MCH 29.5 MCHC 34.7 RDW 14.2 H Plt Count 285 Seg Neutrophils % 73.3 Sodium 136.7 L Potassium 3.8 Chloride 101 Carbon Dioxide 26 Anion Gap 10 BUN 9 Creatinine 0.62 0.58 Est GFR ( Amer) > 60 > 60 Glucose 97 Calcium 8.8 11/29/19 19:25 Face - Abscess Gram Stain - Final 11/29/19 19:25 Face - Abscess Wound Culture - Final Staphylococcus Aureus No Anaerobic Organisms Impressions: Soft Tissue Neck CT 11/29/19 12:55 IMPRESSION: Extensive ill-defined subcutaneous stranding and edema involving the right lateral and paramedian mandibular subcutaneous tissue suggestive of cellulitis. No focal drainable collection. No discrete mass. Prominent submandibular and cervical nodes, likely reactive. No discrete adenopathy. Assessment and Plan - Diagnosis (1) Facial cellulitis Is this a current diagnosis for this admission?: Yes Plan: Mild improvement still has significant erythema, tenderness and discharge. Wound culture growing MSSA. 3 IV antibiotics. Day 3 IV clindamycin. Received 2 days of IV vancomycin. Continue IV clindamycin. Possible discharge home tomorrow. (2) Bipolar depression Is this a current diagnosis for this admission?: Yes Plan: Denies any suicidal or homicidal ideation. Restart home meds. (3) Seizure disorder Is this a current diagnosis for this admission?: Yes Plan: Last seizure in September 2019. Takes Keppra 500 mg p.o. twice daily. Restart home meds. Fall, aspiration and seizure precautions. PRN benzos. (4) Hypertension Is this a current diagnosis for this admission?: Yes Plan: Takes clonidine at home. Restart home meds. PRN hydralazine and metoprolol. (5) History of intravenous drug use in remission Is this a current diagnosis for this admission?: Yes Plan: On Suboxone 8 mg p.o. twice daily. Start home meds. Encouraged abstinence.
[2019-12-01] MEDS ORDERED: VANCOMYCIN HCL 1,000 MG in DEXTROSE 5%-WATER 250 ML IV SCH (14:00)
[2019-12-01] MEDS: CLINDAMYCIN 900 MG/D5W RTU 900 MG/50 ML RTUPB IV SCH ×2 (14:24→21:15)
[2019-12-01] MEDS: CLONIDINE HCL 0.1 MG TABLET PO SCH (21:15)
[2019-12-01] MEDS: TEMAZEPAM 7.5 MG CAPSULE PO PRN (21:18)
[2019-12-02] MEDS: KETOROLAC TROMETHAMINE INJ/PF 30 MG/1 ML SDV IV PRN ×4 (00:11→21:23)
[2019-12-02] MEDS: CLINDAMYCIN 900 MG/D5W RTU 900 MG/50 ML RTUPB IV SCH ×3 (05:43→21:23)
[2019-12-02] MEDS: OXYCODONE-ACETAMINOPHEN 5-325 MG TABLET PO PRN ×2 (06:55→17:41)
[2019-12-02] MEDS ORDERED: DEXTROSE 5%-NORMAL SALINE 1,000 ML IV PRN (09:33)
[2019-12-02] MEDS: ENOXAPARIN SODIUM INJ 40 MG/0.4 ML DISP.SYRIN SUBCUT SCH (10:33)
[2019-12-02] MEDS: DOCUSATE SODIUM 100 MG CAPSULE PO SCH ×2 (10:44→17:41)
[2019-12-02] MEDS: FAMOTIDINE 20 MG TABLET PO SCH ×2 (10:44→21:24)
[2019-12-02] MEDS: LEVETIRACETAM 500 MG TABLET PO SCH ×2 (10:44→21:23)
[2019-12-02] MEDS: NICOTINE 21 MG/24 HR PATCH.TD24 TD SCH (10:45)
[2019-12-02] MEDS: SERTRALINE HCL 50 MG TABLET PO SCH (10:45)
[2019-12-02] MEDS: BUPRENORPHINE HCL 2 MG SUBLINGUAL TABLET SL SCH ×2 (10:45→17:42)
--- NOTE | 2019-12-02 10:48 | PDOC PROGRESS REPORT ---
Subjective Progress Note for:: 12/02/19 Subjective:: STEPHEN MANCINI is a 39 year old female past medical history of IV drug abuse on Suboxone, bipolar depression, seizure disorder, hypertension presented to ED complaining of right facial pain and swelling. Stating that she had an ingrown hair on the right side of her chin on Wednesday which she pulled out following 2 days she noted that right face was starting to swell up, become erythematous, and exquisitely tender. Right facial pain radiating to the neck, proximity to the ears and right cheek. Associated symptoms are fever, chills, nausea and vomiting. Patient is p.o. tolerant, denies any shortness of breath, denies any sore throat, any chest pain, abdomi nal pain, diarrhea, constipation or any urinary symptoms. Denies any recent hospitalization, sick contact or any recent travel. 11/30/2019. Was febrile last night otherwise right facial swelling and pain improving mildly, denies any nausea, vomiting, diarrhea, constipation or any urinary symptoms. P.o. tolerant. Denies any shortness of breath or chest pain. 12/01/2019. No acute events overnight. Patient still complaining of persistent right facial pain otherwise denies any fever, chills, nausea, vomiting, diarrhea, constipation or any urinary symptoms. P.o. tolerant. Denies any shortness of breath. 12/02/2019. No acute events overnight. Patient still complaining of persistent severe facial pain however she has moderate improvement of swelling and erythema. P.o. tolerant. Denies any shortness of breath. Denies any fever, chills, nausea, vomiting, diarrhea, constipation or any urinary symptoms. Reason For Visit: FACIAL CELLULITIS Physical Exam Vital Signs: Temp Pulse Resp BP Pulse Ox 97.4 F 55 L 14 83/58 L 97 12/02/19 07:43 12/02/19 07:43 12/02/19 07:43 12/02/19 07:43 12/02/19 07:43 Intake & Output 12/01/19 12/02/19 12/03/19 06:59 06:59 06:59 Intake Total 4381 9785 Balance 4381 2375 Weight 67.2 kg General appearance: PRESENT: no acute distress, well-developed, well-nourished Head exam: PRESENT: atraumatic, normocephalic Head Image: 1 - Erythema and swelling. Respiratory exam: PRESENT: clear to auscultation mike. ABSENT: rales, rhonchi, w heezes GI/Abdominal exam: PRESENT: normal bowel sounds, soft. ABSENT: distended, guarding, mass, organolmegaly, rebound, tenderness Neurological exam: PRESENT: alert, awake, oriented to person, oriented to place, oriented to time, oriented to situation, CN II-XII grossly intact. ABSENT: motor sensory deficit Results Laboratory Results: 12/01/19 04:06 12/02/19 05:36 12/02/19 05:36 Creatinine 0.69 Est GFR ( Amer) > 60 11/29/19 19:25 Face - Abscess Gram Stain - Final 11/29/19 19:25 Face - Abscess Wound Culture - Final Staphylococcus Aureus No Anaerobic Organisms Impressions: Soft Tissue Neck CT 11/29/19 12:55 IMPRESSION: Extensive ill-defined subcutaneous stranding and edema involving the right lateral and paramedian mandibular subcutaneous tissue suggestive of cellulitis. No focal drainable collection. No discrete mass. Prominent submandibular and cervical nodes, likely reactive. No discrete adenopathy. Assessment and Plan - Diagnosis (1) Facial cellulitis Is this a current diagnosis for this admission?: Yes Plan: Mild improvement still has significant erythema, tenderness and discharge. Wound culture growing MSSA. Day 4 IV antibiotics. Day 4 IV clindamycin. Received 2 days of IV vancomycin. Continue IV clindamycin. Possible discharge home tomorrow. (2) Bipolar depression Is this a current diagnosis for this admission?: Yes Plan: Denies any suicidal or homicidal ideation. Restart home meds. (3) Seizure disorder Is this a current diagnosis for this admission?: Yes Plan: Last seizure in September 2019. Takes Keppra 500 mg p.o. twice daily. Restart home meds. Fall, aspiration and seizure precautions. PRN benzos. (4) Hypertension Is this a current diagnosis for this admission?: Yes Plan: Takes clonidine at home. Restart home meds. PRN hydralazine and metoprolol. (5) History of intravenous drug use in remission Is this a current diagnosis for this admission?: Yes Plan: On Suboxone 8 mg p.o. twice daily. Start home meds. Encouraged abstinence.
[2019-12-02] MEDS ORDERED: DEXTROSE 40% GEL 15 GM TUBE PO PRN ×2 (20:21)
[2019-12-02] MEDS ORDERED: GLUCAGON,HUMAN RECOMB 1 MG INJ SUBCUT PRN (20:21)
[2019-12-02] MEDS ORDERED: DEXTROSE 50%-WATER 25 GM/50 ML DISP.SYRIN IV PRN ×2 (20:21)
[2019-12-02] MEDS: CLONIDINE HCL 0.1 MG TABLET PO SCH (21:23)
[2019-12-02] MEDS: TEMAZEPAM 7.5 MG CAPSULE PO PRN (21:24)
[2019-12-03] MEDS: OXYCODONE-ACETAMINOPHEN 5-325 MG TABLET PO PRN ×3 (00:05→20:57)
[2019-12-03] MEDS: MORPHINE SULFATE 10 MG/ML INJ IV PRN ×3 (01:31→18:45)
[2019-12-03] MEDS: KETOROLAC TROMETHAMINE INJ/PF 30 MG/1 ML SDV IV PRN ×3 (05:05→20:56)
[2019-12-03] MEDS: CLINDAMYCIN 900 MG/D5W RTU 900 MG/50 ML RTUPB IV SCH ×3 (05:05→21:03)
[2019-12-03 06:08] LABS: ABSOLUTE EOSINOPHILS # (AUTO) 0.2 10^3/uL (0.0-0.6); ABSOLUTE LYMPHOCYTES (AUTO) 1.6 10^3/uL (0.5-4.7); ABSOLUTE MONOCYTES (AUTO) 0.3 10^3/uL (0.1-1.4); ABSOLUTE NEUT (AUTO) 1.7 10^3/uL (1.7-8.2); BASOPHILS % (AUTO) 0.9 % (0-2); EOSINOPHILS % (AUTO) 4.6 % (0-6); HEMATOCRIT 34.1 % (36.0-47.0); HEMOGLOBIN 11.6 g/dL (12.0-15.5); LYMPHOCYTES % (AUTO) 41.3 % (13-45); MEAN CORPUSCULAR HGB CONC 34.1 g/dL (32.0-36.0); MEAN CORPUSCULAR VOLUME 85 fl (80-97); MONOCYTES % (AUTO) 9.1 % (3-13); PLATELET COUNT 264 10^3/uL (150-450); RED BLOOD COUNT 4.02 10^6/uL (3.72-5.28); RED CELL DISTRIBUTION WIDTH 14.6 % (11.5-14.0); SEGMENTED NEUTROPHILS % (AUTO) 44.1 % (42-78); TOTAL CELLS COUNTED % (AUTO) 100 %; WHITE BLOOD COUNT 3.8 10^3/uL (4.0-10.5)
[2019-12-03 06:35] LABS: ALKALINE PHOSPHATASE 77 U/L (38-126); ANION GAP 9 (5-19); ASPARTATE AMINO TRANSFERASE 25 U/L (14-36); BILIRUBIN,DIRECT 0.2 mg/dL (0.0-0.4); BILIRUBIN,TOTAL 0.2 mg/dL (0.2-1.3); BLOOD UREA NITROGEN 16 mg/dL (7-20); CALCIUM 8.5 mg/dL (8.4-10.2); CARBON DIOXIDE 26 mmol/L (22-30); CHLORIDE 105 mmol/L (98-107); GLUCOSE 88 mg/dL (75-110); POTASSIUM 3.9 mmol/L (3.6-5.0); TOTAL PROTEIN 6.1 g/dL (6.3-8.2)
--- NOTE | 2019-12-03 07:22 | PDOC PROGRESS REPORT ---
Subjective Progress Note for:: 12/03/19 Subjective:: 39-year-old female with a large facial abscess. She reports continued facial pain. She denies fevers, chills, headache, shortness of breath, chest pain, nausea, vomiting, blurry vision, dizziness, fatigue, malaise. Reason For Visit: FACIAL CELLULITIS Physical Exam Vital Signs: Temp Pulse Resp BP Pulse Ox 98.0 F 69 18 108/65 99 12/02/19 19:49 12/02/19 19:49 12/02/19 19:49 12/02/19 19:49 12/02/19 19:49 Intake & Output 12/02/19 12/03/19 12/04/19 06:59 06:59 06:59 Intake Total 2375 1628 Balance 2375 1628 Weight 67.2 kg 70.2 kg General appearance: PRESENT: no acute distress, cooperative Head exam: PRESENT: atraumatic, normocephalic Eye exam: PRESENT: EOMI, PERRLA. ABSENT: scleral icterus Mouth exam: PRESENT: moist, neck supple, other - Abscess to the right inferior, anterior face. There is induration, swelling, and tenderness to palpation. Neck exam: ABSENT: meningismus, tenderness, thyromegaly, tracheal deviation Respiratory exam: PRESENT: unlabored. ABSENT: chest wall tenderness, tachypnea, wheezes Cardiovascular exam: PRESENT: RRR Pulses: PRESENT: normal radial pulses Vascular exam: PRESENT: normal capillary refill. ABSENT: pallor GI/Abdominal exam: PRESENT: soft. ABSENT: distended, firm, rigid, tenderness Rectal exam: PRESENT: deferred Extremities exam: ABSENT: clubbing Musculoskeletal exam: ABSENT: deformity Neurological exam: PRESENT: alert, awake, oriented to person, oriented to place, oriented to time, oriented to situation, CN II-XII grossly intact. ABSENT: motor sensory deficit Psychiatric exam: PRESENT: agitated. ABSENT: anxious, depressed Focused psych exam: ABSENT: delusional Skin exam: PRESENT: erythema - Right inferior face. ABSENT: cyanosis, jaundice Results Laboratory Results: 12/03/19 05:57 12/03/19 05:57 12/03/19 12/03/19 05:57 05:57 WBC 3.8 L RBC 4.02 Hgb 11.6 L Hct 34.1 L MCV 85 MCH 29.0 MCHC 34.1 RDW 14.6 H Plt Count 264 Seg Neutrophils % 44.1 Sodium 139.9 Potassium 3.9 Chloride 105 Carbon Dioxide 26 Anion Gap 9 BUN 16 Creatinine 0.74 Est GFR ( Amer) > 60 Glucose 88 Calcium 8.5 Total Bilirubin 0.2 AST 25 Alkaline Phosphatase 77 Total Protein 6.1 L Albumin 3.0 L Impressions: Soft Tissue Neck CT 11/29/19 12:55 IMPRESSION: Extensive ill-defined subcutaneous stranding and edema involving the right lateral and paramedian mandibular subcutaneous tissue suggestive of cellulitis. No focal drainable collection. No discrete mass. Prominent submandibular and cervical nodes, likely reactive. No discrete adenopathy. Assessment & Plan - Diagnosis (1) Abscess of face Is this a current diagnosis for this admission?: Yes - Time Time Spent with patient: Less than 15 minutes - Plan Summary Plan Summary: This is a 39-year-old female with a facial abscess. Plan is for incision and drainage in the operating room today. Patient has agreed to this. Risks/benefits discussed, informed consent obtained, and all questions answered.
[2019-12-03] MEDS: SERTRALINE HCL 50 MG TABLET PO SCH (09:11)
[2019-12-03] MEDS: LEVETIRACETAM 500 MG TABLET PO SCH ×2 (09:11→21:03)
[2019-12-03] MEDS: FAMOTIDINE 20 MG TABLET PO SCH ×2 (09:11→21:03)
[2019-12-03] MEDS: ENOXAPARIN SODIUM INJ 40 MG/0.4 ML DISP.SYRIN SUBCUT SCH (09:12)
[2019-12-03] MEDS: BUPRENORPHINE HCL 2 MG SUBLINGUAL TABLET SL SCH ×2 (09:12→18:45)
[2019-12-03] MEDS ORDERED: BUPIVACAINE HCL 0.25 % INJ/PF (2.5 MG/1 ML) 30 ML VIAL ONE (10:22)
[2019-12-03] MEDS ORDERED: LIDOCAINE 1% INJ-PF (10 MG/ML) 30 ML SDV ONE (10:22)
[2019-12-03] MEDS ORDERED: FENTANYL CITRATE INJ/PF 100 MCG/2 ML AMPUL ONE (10:25)
[2019-12-03] MEDS ORDERED: DEXMEDETOMIDINE INJ 80 MCG/20 ML VIAL IV ONE (10:25)
[2019-12-03] MEDS ORDERED: MIDAZOLAM 2 MG/2 ML INJ ONE (10:25)
[2019-12-03] MEDS ORDERED: ONDANSETRON HCL INJ/PF 4 MG/2 ML SDV ONE (10:25)
[2019-12-03] MEDS ORDERED: LIDOCAINE 2% INJ-PF (100 MG/5 ML) SYRINGE ONE (10:25)
[2019-12-03] MEDS ORDERED: PROPOFOL INJ 200 MG/20 ML VIAL IV ONE (10:25)
[2019-12-03] MEDS ORDERED: DEXAMETHASONE SOD PHOSPHATE INJ 4 MG/1 ML VIAL ONE (10:25)
[2019-12-03] MEDS ORDERED: BUPIVACAINE HCL 0.25 % INJ/PF (2.5 MG/1 ML) 30 ML VIAL INJ ONE (10:36)
--- NOTE | 2019-12-03 11:01 | Operative Report ---
Nonrecallable Operative Report DATE OF SURGERY: 12/03/19 PREOPERATIVE DIAGNOSIS: Facial abscess. POSTOPERATIVE DIAGNOSIS: Same as above OPERATION: Incision and drainage of a facial abscess, intraoral approach. SURGEON: AISHA DAVILA ANESTHESIA: GA TISSUE REMOVED OR ALTERED: Wound culture COMPLICATIONS: None apparent ESTIMATED BLOOD LOSS: Minimal PROCEDURE: Drains/implants: 4 x 4 packing, intraoral position. Procedure in detail: After informed consent was obtained, the patient was brought to the operating room and laid in the supine position. The patient was examined. There was a large area of induration in the right inferior, anterior face. The induration abutted the lip internally. Due to the location of the abscess, an intraoral approach was felt to be preferred. Quarter percent Marcaine was injected into the oral cavity, and the area of infection. A small incision was created in the inner right lower oral cavity. Dissection was carried to the abscess cavity using blunt dissection with a hemostat. Purulent material was encountered. The cavity was vigorously cleaned and curetted. A wound culture was taken. Hemostasis was achieved through direct pressure and 4 x 4 gauze. Dressings were placed, and the procedure was concluded. All sponge, instrument, needle counts were correct x2. Condition: Stable.
[2019-12-03] MEDS ORDERED: FENTANYL CITRATE INJ/PF 100 MCG/2 ML AMPUL IV PRN ×3 (11:04)
[2019-12-03] MEDS ORDERED: KETOROLAC TROMETHAMINE INJ/PF 30 MG/1 ML SDV ONE (11:04)
[2019-12-03] MEDS ORDERED: PROMETHAZINE HCL INJ 25 MG/1 ML VIAL IV PRN ×2 (11:04)
[2019-12-03] MEDS ORDERED: OXYCODONE-ACETAMINOPHEN 5-325 MG TABLET PO PRN ×2 (11:04)
[2019-12-03] MEDS ORDERED: MORPHINE SULFATE 10 MG/ML INJ IV PRN (11:04)
[2019-12-03] MEDS ORDERED: MEPERIDINE HCL/PF INJ 25 MG/1 ML DISP.SYRIN IV PRN (11:04)
[2019-12-03] MEDS ORDERED: DIPHENHYDRAMINE HCL 50 MG/ML VIAL IV PRN (11:04)
[2019-12-03] MEDS ORDERED: ACETAMINOPHEN 1,000 MG/100 ML RTUPB IV ONE (11:04)
[2019-12-03] MEDS ORDERED: KETOROLAC TROMETHAMINE INJ/PF 30 MG/1 ML SDV INJ ONE (11:05)
--- NOTE | 2019-12-03 11:13 | PDOC PROGRESS REPORT ---
Subjective Progress Note for:: 12/03/19 Subjective:: STEPHEN MANCINI is a 39 year old female past medical history of IV drug abuse on Suboxone, bipolar depression, seizure disorder, hypertension presented to ED complaining of right facial pain and swelling. Stating that she had an ingrown hair on the right side of her chin on Wednesday which she pulled out following 2 days she noted that right face was starting to swell up, become erythematous, and exquisitely tender. Right facial pain radiating to the neck, proximity to the ears and right cheek. Associated symptoms are fever, chills, nausea and vomiting. Patient is p.o. tolerant, denies any shortness of breath, denies any sore throat, any chest pain, abdomi nal pain, diarrhea, constipation or any urinary symptoms. Denies any recent hospitalization, sick contact or any recent travel. 11/30/2019. Was febrile last night otherwise right facial swelling and pain improving mildly, denies any nausea, vomiting, diarrhea, constipation or any urinary symptoms. P.o. tolerant. Denies any shortness of breath or chest pain. 12/01/2019. No acute events overnight. Patient still complaining of persistent right facial pain otherwise denies any fever, chills, nausea, vomiting, diarrhea, constipation or any urinary symptoms. P.o. tolerant. Denies any shortness of breath. 12/02/2019. No acute events overnight. Patient still complaining of persistent severe facial pain however she has moderate improvement of swelling and erythema. P.o. tolerant. Denies any shortness of breath. Denies any fever, chills, nausea, vomiting, diarrhea, constipation or any urinary symptoms. 12/03/2019. No acute events overnight. Patient facial swelling and erythema are improving however still complaining of persistent pain, as per surgical evaluation patient may have an abscess which is scheduled to be I&D today. Denies any fever, chills, nausea, vomiting, diarrhea, constipation or any urinary symptoms. Reason For Visit: FACIAL CELLULITIS Physical Exam Vital Signs: Temp Pulse Resp BP Pulse Ox 98.0 F 69 18 108/65 99 12/02/19 19:49 12/02/19 19:49 12/02/19 19:49 12/02/19 19:49 12/02/19 19:49 Intake & Output 0212/03/19 12/04/19 06:59 06:59 06:59 Intake Total 2375 1628 Balance 2375 1628 Weight 67.2 kg 70.2 kg General appearance: PRESENT: no acute distress, well-developed, well-nourished Head exam: PRESENT: atraumatic, normocephalic Head Image: 1 - Swelling and erythema. Neck exam: ABSENT: carotid bruit, JVD, lymphadenopathy, thyromegaly Respiratory exam: PRESENT: clear to auscultation mike. ABSENT: rales, rhonchi, wheezes Neurological exam: PRESENT: alert, awake, oriented to person, oriented to place, oriented to time, oriented to situation, CN II-XII grossly intact. ABSENT: motor sensory deficit Results Laboratory Results: 12/03/19 05:57 12/03/19 05:57 12/03/19 12/03/19 12/03/19 05:57 05:57 05:57 WBC 3.8 L RBC 4.02 Hgb 11.6 L Hct 34.1 L MCV 85 MCH 29.0 MCHC 34.1 RDW 14.6 H Plt Count 264 Seg Neutrophils % 44.1 Sodium 139.9 Potassium 3.9 Chloride 105 Carbon Dioxide 26 Anion Gap 9 BUN 16 Creatinine 0.74 Est GFR ( Amer) > 60 Glucose 88 Calcium 8.5 Total Bilirubin 0.2 AST 25 Alkaline Phosphatase 77 Total Protein 6.1 L Albumin 3.0 L Serum HCG, Qual NEGATIVE Impressions: Soft Tissue Neck CT 11/29/19 12:55 IMPRESSION: Extensive ill-defined subcutaneous stranding and edema involving the right lateral and paramedian mandibular subcutaneous tissue suggestive of cellulitis. No focal drainable collection. No discrete mass. Prominent submandibular and cervical nodes, likely reactive. No discrete adenopathy. Assessment and Plan - Diagnosis (1) Facial cellulitis Is this a current diagnosis for this admission?: Yes Plan: Moderate improvement of erythema and swelling. Still complaining of persistent pain. As per surgical evaluation patient may have an abscess which is scheduled to have an I&D today. Facial CT on admission did not show any abscess. Wound culture growing MSSA. Day 5 IV antibiotics. Day 5 IV clindamycin. Received 2 days of IV vancomycin. Continue IV clindamycin. Possible discharge home tomorrow. (2) Bipolar depression Is this a current diagnosis for this admission?: Yes Plan: Denies any suicidal or homicidal ideation. Restart home meds. (3) Seizure disorder Is this a current diagnosis for this admission?: Yes Plan: Last seizure in September 2019. Takes Keppra 500 mg p.o. twice daily. Restart home meds. Fall, aspiration and seizure precautions. PRN benzos. (4) Hypertension Is this a current diagnosis for this admission?: Yes Plan: Takes clonidine at home. Restart home meds. PRN hydralazine and metoprolol. (5) History of intravenous drug use in remission Is this a current diagnosis for this admission?: Yes Plan: On Suboxone 8 mg p.o. twice daily. Start home meds. Encouraged abstinence.
[2019-12-03] MEDS: NICOTINE 21 MG/24 HR PATCH.TD24 TD SCH (12:30)
[2019-12-03] MEDS: DOCUSATE SODIUM 100 MG CAPSULE PO SCH ×2 (12:30→18:45)
[2019-12-03] MEDS ORDERED: FLUCONAZOLE 100 MG TABLET PO ONE (17:00)
[2019-12-03] MEDS: TEMAZEPAM 7.5 MG CAPSULE PO PRN (20:57)
[2019-12-03] MEDS: CLONIDINE HCL 0.1 MG TABLET PO SCH (21:03)
[2019-12-04] MEDS: OXYCODONE-ACETAMINOPHEN 5-325 MG TABLET PO PRN ×4 (02:24→21:51)
[2019-12-04] MEDS: KETOROLAC TROMETHAMINE INJ/PF 30 MG/1 ML SDV IV PRN ×2 (05:10→15:43)
[2019-12-04] MEDS: CLINDAMYCIN 900 MG/D5W RTU 900 MG/50 ML RTUPB IV SCH ×3 (05:11→21:50)
[2019-12-04 05:39] LABS: ABSOLUTE LYMPHOCYTES (AUTO) 1.5 10^3/uL (0.5-4.7); ABSOLUTE MONOCYTES (AUTO) 0.5 10^3/uL (0.1-1.4); ABSOLUTE NEUT (AUTO) 3.4 10^3/uL (1.7-8.2); BASOPHILS % (AUTO) 0.7 % (0-2); EOSINOPHILS % (AUTO) 0.5 % (0-6); HEMATOCRIT 32.9 % (36.0-47.0); HEMOGLOBIN 11.3 g/dL (12.0-15.5); LYMPHOCYTES % (AUTO) 27.9 % (13-45); MEAN CORPUSCULAR HEMOGLOBIN 29.3 pg (27.0-33.4); MEAN CORPUSCULAR HGB CONC 34.3 g/dL (32.0-36.0); MEAN CORPUSCULAR VOLUME 86 fl (80-97); MONOCYTES % (AUTO) 9.2 % (3-13); PLATELET COUNT 249 10^3/uL (150-450); RED BLOOD COUNT 3.85 10^6/uL (3.72-5.28); RED CELL DISTRIBUTION WIDTH 14.4 % (11.5-14.0); SEGMENTED NEUTROPHILS % (AUTO) 61.7 % (42-78); TOTAL CELLS COUNTED % (AUTO) 100 %; WHITE BLOOD COUNT 5.5 10^3/uL (4.0-10.5)
--- NOTE | 2019-12-04 05:53 | PDOC CONSULTATION ---
Consultation Consult Date: 12/02/19 Provider Consulted: SURGICAL SURGICALIST MD Consult reason:: Face abscess History of Present Illness Admission Date/PCP: 11/29/19 16:16 History of Present Illness: STEPHEN MANCINI is a 39 year old female seen in consultation at the request of the medical service. Patient has a one-week history of a "ingrown hair" on the right chin. This progressed to cellulitis of the entire right side of the face, and the patient presented to the emergency department. The patient was admitted by the medical service and started on antibiotics. Overall, the patient's infection has improved, however there is a large area of induration in the right anterior chin. Patient continues to report erythema, induration, small amounts of purulent drainage, and significant amounts of pain. Surgery has been consulted to evaluate the large indurated area of the chin. Patient denies chest pain, shortness of breath, headache, nausea, vomiting, melena, hematochezia, dizziness, orthostasis, blurry vision. Past Medical History Neurological Medical History: Reports: Migraine, Seizures Psychiatric Medical History: Reports: Bipolar Disorder, Depression, Post Traumatic Stress Disorder Past Surgical History Past Surgical History: Reports: Tubal Ligation Social History Smoking Status: Current Every Day Smoker Hx Recreational Drug Use: Yes Hx Prescription Drug Abuse: Yes Family History Family History: Reviewed & Not Pertinent Parental Family History Reviewed: Yes Children Family History Reviewed: Yes Sibling(s) Family History Reviewed.: Yes Medication/Allergy Home Medications: Buprenorphine HCl/Naloxone HCl [Buprenorphin-Naloxon 8-2 mg Sl] 1 tab PO BID 11/29/19 Clonidine HCl [Catapres 0.1 mg Tablet] 0.1 mg PO QHS 11/29/19 Levetiracetam [Keppra 500 mg Tablet] 500 mg PO BID 11/29/19 Sertraline HCl [Zoloft 50 mg Tablet] 100 mg PO DAILY 11/29/19 Allergies/Adverse Reactions: erythromycin base Allergy (Verified 11/29/19 12:51) Penicillins Allergy (Verified 11/29/19 12:51) Review of Systems Constitutional: PRESENT: chills, fatigue, fever(s). ABSENT: headache(s), weakness Eyes: ABSENT: visual disturbances Ears: ABSENT: hearing changes Nose, Mouth, and Throat: ABSENT: sore throat Cardiovascular: ABSENT: chest pain Respiratory: ABSENT: cough Gastrointestinal: ABSENT: abdominal pain, nausea, vomiting Genitourinary: ABSENT: dysuria Musculoskeletal: ABSENT: back pain Integumentary: PRESENT: lesions, wounds, other - Induration, erythema, and pain of the right chin. Neurological: ABSENT: abnormal speech, confusion, convulsions, dizziness Psychiatric: ABSENT: anxiety, depression Endocrine: ABSENT: cold intolerance Hematologic/Lymphatic: ABSENT: easy bleeding Physical Exam Vital Signs: Temp Pulse Resp BP Pulse Ox 97.5 F 55 L 14 92/57 L 94 12/02/19 16:00 12/02/19 16:00 12/02/19 16:00 12/02/19 16:00 12/02/19 16:00 Intake & Output 12/01/19 12/02/19 12/03/19 06:59 06:59 06:59 Intake Total 4381 2375 766 Balance 4381 2375 766 Weight 67.2 kg General appearance: PRESENT: no acute distress, cooperative Head exam: PRESENT: atraumatic, normocephalic Eye exam: PRESENT: EOMI, PERRLA. ABSENT: scleral icterus Mouth exam: PRESENT: moist, neck supple Neck exam: ABSENT: meningismus, tenderness, thyromegaly, tracheal deviation Respiratory exam: PRESENT: unlabored. ABSENT: chest wall tenderness, tachypnea, wheezes Cardiovascular exam: ABSENT: tachycardia Pulses: PRESENT: normal radial pulses Vascular exam: ABSENT: pallor GI/Abdominal exam: PRESENT: soft. ABSENT: distended, firm, tenderness Rectal exam: PRESENT: deferred Extremities exam: ABSENT: clubbing Musculoskeletal exam: ABSENT: deformity Neurological exam: PRESENT: alert, awake, oriented to person, oriented to place, oriented to time, oriented to situation, CN II-XII grossly intact Psychiatric exam: ABSENT: agitated, anxious, depressed Skin exam: PRESENT: erythema, other - Induration, tenderness, small open wound on the right anterior chin. Results Laboratory Results: 12/01/19 04:06 12/02/19 05:36 12/02/19 05:36 Creatinine 0.69 Est GFR ( Amer) > 60 Impressions: Soft Tissue Neck CT 11/29/19 12:55 IMPRESSION: Extensive ill-defined subcutaneous stranding and edema involving the right lateral and paramedian mandibular subcutaneous tissue suggestive of cellulitis. No focal drainable collection. No discrete mass. Prominent submandibular and cervical nodes, likely reactive. No discrete adenopathy. Assessment & Plan - Diagnosis (1) Abscess of face Is this a current diagnosis for this admission?: Yes - Plan Summary Plan Summary: This is a 39-year-old female with a large amount of facial cellulitis due to a "ingrown hair". The patient has been on antibiotics for several days now, wit hout resolution of her symptoms. Surgery has been consulted to evaluate for a facial abscess. There is a large amount of induration, with a small amount of purulent drainage. I do believe the patient has a facial abscess. I have recommended incision and drainage in the OR, under controlled circumstances. The patient has agreed to this. Risks/benefits discussed, informed consent obtained, and all questions answered.
[2019-12-04 06:04] LABS: BLOOD UREA NITROGEN 14 mg/dL (7-20); CALCIUM 8.5 mg/dL (8.4-10.2); CARBON DIOXIDE 26 mmol/L (22-30); CHLORIDE 108 mmol/L (98-107); GLUCOSE 114 mg/dL (75-110); POTASSIUM 4.4 mmol/L (3.6-5.0)
[2019-12-04 06:09] LABS: ANION GAP 5 (5-19)
[2019-12-04] MEDS: ENOXAPARIN SODIUM INJ 40 MG/0.4 ML DISP.SYRIN SUBCUT SCH (10:42)
[2019-12-04] MEDS: FAMOTIDINE 20 MG TABLET PO SCH ×2 (10:49→21:51)
[2019-12-04] MEDS: BUPRENORPHINE HCL 2 MG SUBLINGUAL TABLET SL SCH ×2 (10:49→17:37)
[2019-12-04] MEDS: DOCUSATE SODIUM 100 MG CAPSULE PO SCH ×2 (10:49→17:37)
[2019-12-04] MEDS: SERTRALINE HCL 50 MG TABLET PO SCH (10:49)
[2019-12-04] MEDS: LEVETIRACETAM 500 MG TABLET PO SCH ×2 (10:49→21:51)
[2019-12-04] MEDS: MORPHINE SULFATE 10 MG/ML INJ IV PRN (10:50)
--- NOTE | 2019-12-04 11:03 | PDOC PROGRESS REPORT ---
Subjective Progress Note for:: 12/04/19 Subjective:: STEPHEN MANCINI is a 39 year old female past medical history of IV drug abuse on Suboxone, bipolar depression, seizure disorder, hypertension presented to ED complaining of right facial pain and swelling. Stating that she had an ingrown hair on the right side of her chin on Wednesday which she pulled out following 2 days she noted that right face was starting to swell up, become erythematous, and exquisitely tender. Right facial pain radiating to the neck, proximity to the ears and right cheek. Associated symptoms are fever, chills, nausea and vomiting. Patient is p.o. tolerant, denies any shortness of breath, denies any sore throat, any chest pain, abdomi nal pain, diarrhea, constipation or any urinary symptoms. Denies any recent hospitalization, sick contact or any recent travel. 11/30/2019. Was febrile last night otherwise right facial swelling and pain improving mildly, denies any nausea, vomiting, diarrhea, constipation or any urinary symptoms. P.o. tolerant. Denies any shortness of breath or chest pain. 12/01/2019. No acute events overnight. Patient still complaining of persistent right facial pain otherwise denies any fever, chills, nausea, vomiting, diarrhea, constipation or any urinary symptoms. P.o. tolerant. Denies any shortness of breath. 12/02/2019. No acute events overnight. Patient still complaining of persistent severe facial pain however she has moderate improvement of swelling and erythema. P.o. tolerant. Denies any shortness of breath. Denies any fever, chills, nausea, vomiting, diarrhea, constipation or any urinary symptoms. 12/03/2019. No acute events overnight. Patient facial swelling and erythema are improving however still complaining of persistent pain, as per surgical evaluation patient may have an abscess which is scheduled to be I&D today. Denies any fever, chills, nausea, vomiting, diarrhea, constipation or any urinary symptoms. 12/04/2019. No acute events overnight. Status post I&D of intraoral abscess by surgery 12/03/2019. Patient is stating that she is having worsening placed post I&D and feels like inside of her mouth swelling, denies any fever, chills, nausea, vomiting, diarrhea, constipation or any urinary symptoms. P.o. tolerant. Denies any shortness of breath or chest pain. Patient could be discharged home tomorrow on p.o. antibiotic once cleared from surgical services. Reason For Visit: FACIAL CELLULITIS Physical Exam Vital Signs: Temp Pulse Resp BP Pulse Ox 98.0 F 54 L 16 100/63 100 12/04/19 08:06 12/04/19 08:06 12/04/19 08:06 12/04/19 08:06 12/04/19 08:06 Intake & Output 12/03/19 12/04/19 12/05/19 06:59 06:59 06:59 Intake Total 1628 2450 Output Total 900 Balance 1628 1550 Weight 70.2 kg 75.9 kg General appearance: PRESENT: no acute distress, well-developed, well-nourished Head exam: PRESENT: atraumatic, normocephalic Head Image: 1 - Mild erythema and swelling. Respiratory exam: PRESENT: clear to auscultation mike. ABSENT: rales, rhonchi, wheezes Cardiovascular exam: PRESENT: RRR. ABSENT: diastolic murmur, rubs, systolic murmur GI/Abdominal exam: PRESENT: normal bowel sounds, soft. ABSENT: distended, guarding, mass, organolmegaly, rebound, tenderness Neurological exam: PRESENT: alert, awake, oriented to person, oriented to place, oriented to time, oriented to situation, CN II-XII grossly intact. ABSENT: motor sensory deficit Results Laboratory Results: 12/04/19 05:18 12/04/19 05:18 12/04/19 12/04/19 05:18 05:18 WBC 5.5 RBC 3.85 Hgb 11.3 L Hct 32.9 L MCV 86 MCH 29.3 MCHC 34.3 RDW 14.4 H Plt Count 249 Seg Neutrophils % 61.7 Sodium 138.4 Potassium 4.4 Chloride 108 H Carbon Dioxide 26 Anion Gap 5 BUN 14 Creatinine 0.68 Est GFR ( Amer) > 60 Glucose 114 H Calcium 8.5 Impressions: Soft Tissue Neck CT 11/29/19 12:55 IMPRESSION: Extensive ill-defined subcutaneous stranding and edema involving the right lateral and paramedian mandibular subcutaneous tissue suggestive of cellulitis. No focal drainable collection. No discrete mass. Prominent submandibular and cervical nodes, likely reactive. No discrete adenopathy. Assessment and Plan - Diagnosis (1) Facial cellulitis Is this a current diagnosis for this admission?: Yes Plan: Moderate improvement of erythema and swelling. Still complaining of persistent pain. Patient had I&D of intraoral abscess on the right anterior mandible by surgery yesterday. Wound culture growing MSSA. Day 6 IV antibiotics. Day 6 IV clindamycin. Received 2 days of IV vancomycin. Continue IV clindamycin. If pain and swelling has improved and patient is cleared by surgical team patient can be switched to p.o. clindamycin and DC'd home tomorrow. (2) Bipolar depression Is this a current diagnosis for this admission?: Yes Plan: Denies any suicidal or homicidal ideation. Restart home meds. (3) Seizure disorder Is this a current diagnosis for this admission?: Yes Plan: Last seizure in September 2019. Takes Keppra 500 mg p.o. twice daily. Restart home meds. Fall, aspiration and seizure precautions. PRN benzos. (4) Hypertension Is this a current diagnosis for this admission?: Yes Plan: Takes clonidine at home. Restart home meds. PRN hydralazine and metoprolol. (5) History of intravenous drug use in remission Is this a current diagnosis for this admission?: Yes Plan: On Suboxone 8 mg p.o. twice daily. Start home meds. Encouraged abstinence.
[2019-12-04] MEDS: NICOTINE 21 MG/24 HR PATCH.TD24 TD SCH (13:35)
--- NOTE | 2019-12-04 17:51 | PDOC PROGRESS REPORT ---
Subjective Progress Note for:: 12/04/19 Reason For Visit: FACIAL CELLULITIS Patient is having pain in chin; says side of face feels better. She denies fever. Physical Exam Vital Signs: Temp Pulse Resp BP Pulse Ox 97.7 F 58 L 16 119/65 100 12/04/19 15:50 12/04/19 15:50 12/04/19 15:50 12/04/19 15:50 12/04/19 15:50 Intake & Output 12/03/19 12/04/19 12/05/19 06:59 06:59 06:59 Intake Total 1628 2450 120 Output Total 900 Balance 1628 1550 120 Weight 70.2 kg 75.9 kg General appearance: PRESENT: mild distress, other - Complaining of pain right side of face, chin Head exam: PRESENT: other - The right mandible is mild to moderately puffy, no erythema. The side of face upper cheek do not appear swollen. Results Laboratory Results: 12/04/19 05:18 12/04/19 05:18 12/04/19 12/04/19 05:18 05:18 WBC 5.5 RBC 3.85 Hgb 11.3 L Hct 32.9 L MCV 86 MCH 29.3 MCHC 34.3 RDW 14.4 H Plt Count 249 Seg Neutrophils % 61.7 Sodium 138.4 Potassium 4.4 Chloride 108 H Carbon Dioxide 26 Anion Gap 5 BUN 14 Creatinine 0.68 Est GFR ( Amer) > 60 Glucose 114 H Calcium 8.5 11/29/19 16:33 Blood Blood Culture - Final NO GROWTH IN 5 DAYS 11/29/19 14:12 Blood Blood Culture - Final NO GROWTH IN 5 DAYS Impressions: Soft Tissue Neck CT 11/29/19 12:55 IMPRESSION: Extensive ill-defined subcutaneous stranding and edema involving the right lateral and paramedian mandibular subcutaneous tissue suggestive of cellulitis. No focal drainable collection. No discrete mass. Prominent submandibular and cervical nodes, likely reactive. No discrete adenopathy. Assessment & Plan - Diagnosis (1) Abscess of face Is this a current diagnosis for this admission?: Yes Plan: Impression: Clinically improved, but not resolved cellulitis right face status post I&D [address] Long. Recommendations: 1. Follow-up on cultures. Patient currently on Cleocin; she is growing staph aureus at this point. 2. No indication for surgical debridement today 3. We will continue to follow patient in consultation. (2) Bipolar depression Is this a current diagnosis for this admission?: Yes (3) History of intravenous drug use in remission Is this a current diagnosis for this admission?: Yes - Time Time Spent: 30 to 50 Minutes
[2019-12-04] MEDS: CLONIDINE HCL 0.1 MG TABLET PO SCH (21:51)
[2019-12-04] MEDS: TEMAZEPAM 7.5 MG CAPSULE PO PRN (21:51)
[2019-12-05] MEDS ORDERED: DOXYCYCLINE HYCLATE 100 MG TABLET PO SCH (06:00)
[2019-12-05] MEDS: CLINDAMYCIN 900 MG/D5W RTU 900 MG/50 ML RTUPB IV SCH (06:17)
[2019-12-05] MEDS: CLINDAMYCIN HCL 150 MG CAPSULE PO SCH ×4 (07:19→23:45)
[2019-12-05] MEDS: FAMOTIDINE 20 MG TABLET PO SCH ×2 (10:33→21:07)
[2019-12-05] MEDS: LEVETIRACETAM 500 MG TABLET PO SCH ×2 (10:33→21:07)
[2019-12-05] MEDS: SERTRALINE HCL 50 MG TABLET PO SCH (10:34)
[2019-12-05] MEDS: DOCUSATE SODIUM 100 MG CAPSULE PO SCH ×2 (10:34→18:42)
[2019-12-05] MEDS: ENOXAPARIN SODIUM INJ 40 MG/0.4 ML DISP.SYRIN SUBCUT SCH (10:35)
[2019-12-05] MEDS: NICOTINE 21 MG/24 HR PATCH.TD24 TD SCH (10:36)
[2019-12-05] MEDS: BUPRENORPHINE HCL 2 MG SUBLINGUAL TABLET SL SCH ×2 (10:40→18:41)
[2019-12-05] MEDS: OXYCODONE-ACETAMINOPHEN 5-325 MG TABLET PO PRN ×4 (10:40→23:45)
--- NOTE | 2019-12-05 14:01 | PDOC PROGRESS REPORT ---
Subjective Progress Note for:: 12/05/19 Subjective:: Still having pain but improved. Reason For Visit: FACIAL CELLULITIS Physical Exam Vital Signs: Temp Pulse Resp BP Pulse Ox 97.9 F 61 12 100/64 100 12/05/19 12:00 12/05/19 12:00 12/05/19 12:00 12/05/19 12:00 12/05/19 12:00 Intake & Output 12/04/19 12/05/19 12/06/19 06:59 06:59 06:59 Intake Total 2450 1220 260 Output Total 900 Balance 1550 1220 260 Weight 75.9 kg 77.7 kg Head exam: PRESENT: other - Right mandibular region with subtle swelling and tenderness but no fluctuance and no crepitus Results Laboratory Results: 12/04/19 05:18 12/04/19 05:18 12/03/19 10:41 Face - Abscess Gram Stain - Final 11/29/19 16:33 Blood Blood Culture - Final NO GROWTH IN 5 DAYS 11/29/19 14:12 Blood Blood Culture - Final NO GROWTH IN 5 DAYS Impressions: Soft Tissue Neck CT 11/29/19 12:55 IMPRESSION: Extensive ill-defined subcutaneous stranding and edema involving the right lateral and paramedian mandibular subcutaneous tissue suggestive of cellulitis. No focal drainable collection. No discrete mass. Prominent submandibular and cervical nodes, likely reactive. No discrete adenopathy. Assessment & Plan - Diagnosis (1) Abscess of face Is this a current diagnosis for this admission?: Yes Plan: Status post surgical drainage. I do not think there is indication for additional surgical intervention. Continue antibiotics.
--- NOTE | 2019-12-05 14:45 | PDOC PROGRESS REPORT ---
Subjective Progress Note for:: 12/05/19 Subjective:: No adverse events overnight. She said her IV went bad overnight but of the match she is doing okay. She still complaining of a little bit of pain. Vital signs been stable. Reason For Visit: FACIAL CELLULITIS Physical Exam Vital Signs: Temp Pulse Resp BP Pulse Ox 97.9 F 61 12 100/64 100 12/05/19 12:00 12/05/19 12:00 12/05/19 12:00 12/05/19 12:00 12/05/19 12:00 Intake & Output 12/04/19 12/05/19 12/06/19 06:59 06:59 06:59 Intake Total 2450 1220 260 Output Total 900 Balance 1550 1220 260 Weight 75.9 kg 77.7 kg General appearance: PRESENT: no acute distress, cooperative, disheveled, obese Mouth exam: PRESENT: other - Mild right mandibular swelling near the chin Respiratory exam: PRESENT: clear to auscultation mike, symmetrical, unlabored. ABSENT: accessory muscle use, crackles, prolonged expiratory phas, retraction, rhonchi, tachypnea, wheezes Cardiovascular exam: PRESENT: RRR Pulses: PRESENT: normal carotid pulses Vascular exam: PRESENT: normal capillary refill GI/Abdominal exam: PRESENT: normal bowel sounds, soft. ABSENT: distended, gu arding, rebound, tenderness Extremities exam: ABSENT: clubbing, pedal edema Musculoskeletal exam: PRESENT: normal inspection. ABSENT: deformity Neurological exam: PRESENT: alert, awake, oriented to person, oriented to place, oriented to situation Skin exam: PRESENT: dry, warm Results Laboratory Results: 12/04/19 05:18 12/04/19 05:18 12/03/19 10:41 Face - Abscess Gram Stain - Final 11/29/19 16:33 Blood Blood Culture - Final NO GROWTH IN 5 DAYS 11/29/19 14:12 Blood Blood Culture - Final NO GROWTH IN 5 DAYS Impressions: Soft Tissue Neck CT 11/29/19 12:55 IMPRESSION: Extensive ill-defined subcutaneous stranding and edema involving the right lateral and paramedian mandibular subcutaneous tissue suggestive of cellulitis. No focal drainable collection. No discrete mass. Prominent submandibular and cervical nodes, likely reactive. No discrete adenopathy. Assessment and Plan - Diagnosis (1) Facial cellulitis Is this a current diagnosis for this admission?: Yes Plan: Status post incision and drainage of abscess. Her IV went out she is been on clindamycin. I like to put her on Keflex because she grew an MSSA but she has a history of a severe penicillin allergy so we will continue with oral clindamycin. Anticipate discharge tomorrow. - Time Time Spent with patient: 15-24 minutes
[2019-12-05] MEDS ORDERED: ONDANSETRON 4 MG TAB.RAPDIS SL PRN (15:19)
[2019-12-05] MEDS ORDERED: TEMAZEPAM 7.5 MG CAPSULE PO PRN (18:59)
[2019-12-05] MEDS: CLONIDINE HCL 0.1 MG TABLET PO SCH (21:06)
[2019-12-06] MEDS: CLINDAMYCIN HCL 150 MG CAPSULE PO SCH (06:29)
[2019-12-06] MEDS: OXYCODONE-ACETAMINOPHEN 5-325 MG TABLET PO PRN ×2 (06:29→10:39)
--- NOTE | 2019-12-06 09:43 | PDOC PROGRESS REPORT ---
Subjective Progress Note for:: 12/06/19 Reason For Visit: FACIAL CELLULITIS Physical Exam Vital Signs: Temp Pulse Resp BP Pulse Ox 98.3 F 52 L 16 100/52 L 94 12/06/19 08:00 12/06/19 08:00 12/06/19 08:00 12/06/19 08:00 12/06/19 08:00 Intake & Output 12/05/19 12/06/19 12/07/19 06:59 06:59 06:59 Intake Total 1220 820 Balance 1220 820 Weight 77.7 kg 77.6 kg Results Laboratory Results: 12/04/19 05:18 12/04/19 05:18 12/03/19 10:41 Face - Abscess Gram Stain - Final 12/03/19 10:41 Face - Abscess Wound Culture - Final Staphylococcus Aureus Strep Mitis/Oralis Grp Peptostreptococcus Species Impressions: Soft Tissue Neck CT 11/29/19 12:55 IMPRESSION: Extensive ill-defined subcutaneous stranding and edema involving the right lateral and paramedian mandibular subcutaneous tissue suggestive of cellulitis. No focal drainable collection. No discrete mass. Prominent submandibular and cervical nodes, likely reactive. No discrete adenopathy. Assessment & Plan - Diagnosis (1) Abscess of face Is this a current diagnosis for this admission?: Yes - Plan Summary Plan Summary: This is a 39-year-old female status post incision and drainage of facial abscess. Her induration, erythema, and tenderness are much improved today. It is okay for the patient to shower. Continue antibiotics. No further surgical intervention will be necessary. It is okay to discharge the patient home from a surgical standpoint. She should follow-up with [facility] in 7 to 10 days. Surgery will see again on an as-needed basis. Please renotify with any questions or concerns.
--- NOTE | 2019-12-06 09:58 | PDOC DISCHARGE SUMMARY ---
Impression - Admit/DC Date/PCP Admission Date/Primary Care Provider: 12/03/19 12:32 Discharge Date: 12/06/19 - Discharge Diagnosis (1) Facial cellulitis Is this a current diagnosis for this admission?: Yes - Additional Information Resuscitation Status: Full Code Discharge Diet: Regular Discharge Activity: Activity As Tolerated Referrals: [facility] [Provider Group] (7-10 days) Prescriptions: Clindamycin HCl [Cleocin 150 mg Capsule] 300 mg PO Q6 #80 capsule B.subtil/B.coagul/Bifido/Lacto [Provad 30 Billion Cell Capsule] 1 each PO TID #30 capsule Home Medications: Buprenorphine HCl/Naloxone HCl [Buprenorphin-Naloxon 8-2 mg Sl] 1 tab PO BID 11/29/19 Clonidine HCl [Catapres 0.1 mg Tablet] 0.1 mg PO QHS 11/29/19 Levetiracetam [Keppra 500 mg Tablet] 500 mg PO BID 11/29/19 Sertraline HCl [Zoloft 50 mg Tablet] 100 mg PO DAILY 11/29/19 B.subtil/B.coagul/Bifido/Lacto [Provad 30 Billion Cell Capsule] 1 each PO TID #30 capsule 12/06/19 Clindamycin HCl [Cleocin 150 mg Capsule] 300 mg PO Q6 #80 capsule 12/06/19 History of Present Illiness History of Present Illness: STEPHEN MANCINI is a 39 year old female past medical history of IV drug abuse on Suboxone, bipolar depression, seizure disorder, hypertension presented to ED complaining of right facial pain and swelling. Stating that she had an ingrown hair on the right side of her chin on Wednesday which she pulled out following 2 days she noted that right face was starting to swell up, become erythematous, and exquisitely tender. Right facial pain radiating to the neck, proximity to the ears and right cheek. Associated symptoms are fever, chills, nausea and vomiting. Patient is p.o. tolerant, denies any shortness of breath, denies any sore throat, any chest pain, abdominal pain, diarrhea, constipation or any urinary symptoms. Denies any recent hospitalization, sick contact or any recent travel. Hospital Course Hospital Course: She was put on antibiotics for a few days but still had a lot of swelling and so she was seen by surgery. She had a wound culture that was done in ER which grew out MSSA. She also had a wound culture done by surgery when they did an in cision and drainage. This culture also grew out MSSA. It also grew out a Streptococcus mitis and a Peptostreptococcus, both of which are normal oral bacteria and not believed to be pathogens in this situation. She has a history of a severe penicillin allergy and so it was decided to keep her on clindamycin. She will take 10 more days of this. She was advised to take a probiotic while she is on clindamycin. She was eating and drinking without difficulty. Her labs and examination were reassuring and she was discharged in stable condition. Physical Exam Vital Signs: Temp Pulse Resp BP Pulse Ox 98.3 F 52 L 16 100/52 L 94 12/06/19 08:00 12/06/19 08:00 12/06/19 08:00 12/06/19 08:00 12/06/19 08:00 Intake & Output 12/05/19 12/06/19 12/07/19 06:59 06:59 06:59 Intake Total 1220 820 Balance 1220 820 Weight 77.7 kg 77.6 kg General appearance: PRESENT: no acute distress, cooperative, disheveled, obese Mouth exam: PRESENT: other - Mild right mandibular swelling near the chin Respiratory exam: PRESENT: clear to auscultation mike, symmetrical, unlabored. ABSENT: accessory muscle use, crackles, prolonged expiratory phas, retraction, rhonchi, tachypnea, wheezes Cardiovascular exam: PRESENT: RRR Pulses: PRESENT: normal carotid pulses Vascular exam: PRESENT: normal capillary refill GI/Abdominal exam: PRESENT: normal bowel sounds, soft. ABSENT: distended, guarding, rebound, tenderness Extremities exam: ABSENT: clubbing, pedal edema Musculoskeletal exam: PRESENT: normal inspection. ABSENT: deformity Neurological exam: PRESENT: alert, awake, oriented to person, oriented to place, oriented to situation Skin exam: PRESENT: dry, warm Results Laboratory Results: WBC 5.5 10^3/uL (4.0-10.5) 12/04/19 05:18 RBC 3.85 10^6/uL (3.72-5.28) 12/04/19 05:18 Hgb 11.3 g/dL (12.0-15.5) L 12/04/19 05:18 Hct 32.9 % (36.0-47.0) L 12/04/19 05:18 MCV 86 fl (80-97) 12/04/19 05:18 MCH 29.3 pg (27.0-33.4) 12/04/19 05:18 MCHC 34.3 g/dL (32.0-36.0) 12/04/19 05:18 RDW 14.4 % (11.5-14.0) H 12/04/19 05:18 Plt Count 249 10^3/uL (150-450) 12/04/19 05:18 Lymph % (Auto) 27.9 % (13-45) 12/04/19 05:18 Nicholas % (Auto) 9.2 % (3-13) 12/04/19 05:18 Eos % (Auto) 0.5 % (0-6) 12/04/19 05:18 Baso % (Auto) 0.7 % (0-2) 12/04/19 05:18 Absolute Neuts (auto) 3.4 10^3/uL (1.7-8.2) 12/04/19 05:18 Absolute Lymphs (auto) 1.5 10^3/uL (0.5-4.7) 12/04/19 05:18 Absolute Monos (auto) 0.5 10^3/uL (0.1-1.4) 12/04/19 05:18 Absolute Eos (auto) 0.0 10^3/uL (0.0-0.6) 12/04/19 05:18 Absolute Basos (auto) 0.0 10^3/uL (0.0-0.2) 12/04/19 05:18 Seg Neutrophils % 61.7 % (42-78) 12/04/19 05:18 ESR 40 mm/hr (0-20) H 11/29/19 14:12 Sodium 138.4 mmol/L (137-145) 12/04/19 05:18 Potassium 4.4 mmol/L (3.6-5.0) 12/04/19 05:18 Chloride 108 mmol/L (98-107) H 12/04/19 05:18 Carbon Dioxide 26 mmol/L (22-30) 12/04/19 05:18 Anion Gap 5 (5-19) 12/04/19 05:18 BUN 14 mg/dL (7-20) 12/04/19 05:18 Creatinine 0.68 mg/dL (0.52-1.25) 12/04/19 05:18 Est GFR ( Amer) > 60 (>60) 12/04/19 05:18 Est GFR (MDRD) Non-Af > 60 (>60) 12/04/19 05:18 Glucose 114 mg/dL (75-110) H 12/04/19 05:18 Lactic Acid 1.1 mmol/L (0.7-2.1) 11/29/19 14:12 Calcium 8.5 mg/dL (8.4-10.2) 12/04/19 05:18 Magnesium 2.0 mg/dL (1.6-2.3) 11/30/19 04:38 Total Bilirubin 0.2 mg/dL (0.2-1.3) 12/03/19 05:57 Direct Bilirubin 0.2 mg/dL (0.0-0.4) 12/03/19 05:57 Neonat Total Bilirubin Not Reportable 12/03/19 05:57 Neonat Direct Bilirubin Not Reportable 12/03/19 05:57 Neonat Indirect Bili Not Reportable 12/03/19 05:57 AST 25 U/L (14-36) 12/03/19 05:57 ALT 16 U/L (<35) 12/03/19 05:57 Alkaline Phosphatase 77 U/L (38-126) 12/03/19 05:57 C-Reactive Protein 68.8 mg/L (<10.0) H 11/29/19 14:12 Total Protein 6.1 g/dL (6.3-8.2) L 12/03/19 05:57 Albumin 3.0 g/dL (3.5-5.0) L 12/03/19 05:57 Serum HCG, Qual NEGATIVE (NEGATIVE) 12/03/19 05:57 Time Trough Drawn 0536 12/02/19 05:36 Vancomycin Trough 6.0 ug/mL (5.0-20.0) 12/02/19 05:36 Impressions: Soft Tissue Neck CT 11/29/19 12:55 IMPRESSION: Extensive ill-defined subcutaneous stranding and edema involving the right lateral and paramedian mandibular subcutaneous tissue suggestive of cellulitis. No focal drainable collection. No discrete mass. Prominent submandibular and cervical nodes, likely reactive. No discrete adenopathy. Plan Time Spent: Greater than 30 Minutes Stroke Is this a Stroke Patient?: No Acute Heart Failure - Is this a Heart Failure Patient?: No
[2019-12-06] MEDS: SERTRALINE HCL 50 MG TABLET PO SCH (10:36)
[2019-12-06] MEDS: LEVETIRACETAM 500 MG TABLET PO SCH (10:36)
[2019-12-06] MEDS: FAMOTIDINE 20 MG TABLET PO SCH (10:36)
[2019-12-06] MEDS: BUPRENORPHINE HCL 2 MG SUBLINGUAL TABLET SL SCH (10:42)
[2019-12-06] MEDS: ENOXAPARIN SODIUM INJ 40 MG/0.4 ML DISP.SYRIN SUBCUT SCH (10:43)
[2019-12-06 10:49] VITALS: BP 98/52
== END 2019-12-06 11:17 | disposition home or self-care (01) | DRG 581 ==
LOC: ER 11:13 → INTOOBSV 16:16 → EH 16:16 → 4N 19:17 → OBSVTOIN 12-03 12:32
PROVIDERS: ADMIT Internal Medicine; ATTEND Internal Medicine
PROC: 0W930ZZ Drainage of Oral Cavity and Throat, Open Approach (ICD-10-PCS; principal; 2019-12-03 10:30)
DX: L03.211 Cellulitis of face (principal); F31.9 Bipolar disorder, unspecified; G40.909 Epilepsy, unspecified, not intractable, without status epilepticus; I10 Essential (primary) hypertension; F11.21 Opioid dependence, in remission; B95.61 Methicillin susceptible Staphylococcus aureus infection as the cause of diseases classified elsewhere; F17.200 Nicotine dependence, unspecified, uncomplicated; F43.10 Post-traumatic stress disorder, unspecified; Z88.0 Allergy status to penicillin; Z88.1 Allergy status to other antibiotic agents; Z87.81 Personal history of (healed) traumatic fracture; Z79.899 Other long term (current) drug therapy
CPT/HCPCS: 300; 36415; 70491; 80048; 80053; 80202; 82565; 83605; 83735; 84703; 85025; 85652; 86140; 87040; 87070; 87075; 87077; 87186; 87205; 96361; 96374; 96375; 99284; G0378; J0131; J0571; J1100; J1650; J1885; J2001; J2250; J2270; J2405; J2704; J3010; J3370; J3490; J7042; J7060; S0119

== ENCOUNTER 2020-11-04 19:37 | Emergency (ER) | payer BC ==
--- NOTE | 2020-11-04 19:56 | ER Document Report ---
ED Medical Screen (RME) - General Chief Complaint: Shortness Of Breath Stated Complaint: SHORTNESS OF BREATH,CHEST PAIN Time Seen by Provider: 11/04/20 19:49 Mode of Arrival: Ambulatory Information source: Patient Notes: 40-year-old female presents to ED for complaint of cough, congestion, shortness of breath, chest pain, sore throat, body aches, with headaches. Patient is alert oriented respirations regular nonlabored speaking in full sentences. Lungs are clear to auscultation. She states [facility] and [facility] a rapid Covid test which was negative. Will repeat the 48-hour Covid test and get flu strep blood work chest x-ray and she has had an EKG. She will be seen by another provider. I have greeted and performed a rapid initial assessment of this patient. A comprehensive ED assessment and evaluation of the patient, analysis of test results and completion of medical decision making process will be conducted by an additional ED providers. TRAVEL OUTSIDE OF THE [place] IN LAST 30 DAYS: No - Related Data Allergies/Adverse Reactions: erythromycin base Allergy (Verified 11/04/20 19:49) Penicillins Allergy (Verified 11/04/20 19:49) Past Medical History Neurological Medical History: Reports: Hx Migraine, Hx Seizures Renal/ Medical History: Reports: Hx Ovarian Cysts. Denies: Hx Peritoneal Dialysis Musculoskeltal Medical History: Reports Hx Musculoskeletal Trauma Psychiatric Medical History: Reports: Hx Anxiety, Hx Bipolar Disorder, Hx Borderline Personality Disorder, Hx Depression, Hx Post Traumatic Stress Disorder Traumatic Medical History: Reports: Hx Fractures - Patient states she has had a hip and multiple bones in her face fractures Past Surgical History: Reports: Hx Tubal Ligation Physical Exam - Vital signs Vitals: Temp Pulse Resp BP Pulse Ox 98.5 F 89 19 141/99 H 99 11/04/20 19:49 11/04/20 19:49 11/04/20 19:49 11/04/20 19:49 11/04/20 19:49 Course - Vital Signs Vital signs: Temp Pulse Resp BP Pulse Ox 98.5 F 89 19 141/99 H 99 11/04/20 19:49 11/04/20 19:49 11/04/20 19:49 11/04/20 19:49 11/04/20 19:49
--- NOTE | 2020-11-04 20:21 | ER Document Report ---
ED General - General Chief Complaint: Chest Pain Stated Complaint: SHORTNESS OF BREATH,CHEST PAIN Time Seen by Provider: 11/04/20 19:49 Mode of Arrival: Ambulatory TRAVEL OUTSIDE OF THE [place] IN LAST 30 DAYS: No - HPI Notes: Chief Complaint: sob, myalgias Historian: History obtained from patient HPI: This is a 40-year-old female presents to ED for complaint of cough, congestion, shortness of breath, chest pain, sore throat, body aches, with headaches. Patient is alert oriented respirations regular nonlabored speaking in full sentences. Lungs are clear to auscultation. She states [facility] and had a rapid Covid test which was negative. she denies leg sw elling, hemoptysis, dysuria, or vaginal discharge. No PE or DVT history. No treatments tried. Fevers up to 101 couple days ago but nothing today. Patient is a smoker. No known Covid contacts. ROS: Constitutional: Fevers HEENT: no QUIROS, sore throat, or vision changes. CV: chest pain. Resp: cough, sob GI: no abdominal pain, or n/v/d. : no dysuria, hematuria, or incont. MSK: body aches Skin: no rashes or itching. Neuro: no seizures, weakness, numbness, or confusion. Hematological: no ecchymosis or easy bleeding. Endocrine: no polyuria/polydipsia, no heat/cold intolerance. Psych: no SI/HI, AH/VH or memory loss. PMHx: Reviewed and agree as charted by RN. PSHx: Reviewed and agree as charted by RN. SOCHx: Reviewed and agree as charted by RN. FHX: No significant familial comorbid conditions directly related to patient complaint Current Medications: Reviewed and agree with the patient medications as charted by the RN. Allergies: Reviewed and agree with the listed allergies as charted by the RN Physical Exam: Vitals: Reviewed in chart as documented by RN. General: Alert and in NAD. Head: Normocephalic; atraumatic Eyes: PERRLA, Conjunctivae clear sclerae non-icteric bilat ENT: Tonsils 1+ and symmetrical, no erythema/exudate/vesicles. No soft palate swelling or uvular deviation Nasal congestion to bilateral naris Neck: trachea midline, no unilateral swelling/tenderness/lymphadenopathy CV: RRR, no M/R/G; symmetric distal pulses Resp: respirations even and unlabored, no rhonchi, stridor, wheeze GI: abd soft and nondistended. NTTP. normal BS. no masses/HSM. no CVAT bilat MSK: FROM of all extremities. No midline CTL spine tenderness/deformity Skin: warm, moist, good turgor. no rash/lesions Neuro: Alert and oriented X 4. following CN 2-12 intact. no unilateral weakness/numbness Psych: No SI/HI or AH/VH. Medical Decision-making/Differential Diagnosis: Consider various etiologies including but not limited to strep pharyngitis, viral pharyngitis, other pharyngitis, celia-tonsillar abscess (unlikely), retropharyngeal abscess (unlikely), Acute Suppurative Otitis media, otalgia, upper respiratory infection, viral syndrome, bronchitis, sinusitis, ect Plan- triage provider ordered cxr, covid/flu swab, ecg, and basic labs. pt is stable, no hypoxia or resp distress- 02 sats 97% on RA. she is PERC negative. likely viral syndrome. she is appropriate for outpt management. pt told to self quarantine at home until called with covid results. We will give patient a dose of prednisone in the ED and discharged with Doxy and prednisone. PCP follow-up 2 to 3 days. Return for outer status. This course of action was discussed with the patient and/or family. They were amenable to this, verbalized understanding, and were without further questions. - Related Data Allergies/Adverse Reactions: erythromycin base Allergy (Verified 11/04/20 19:49) Penicillins Allergy (Verified 11/04/20 19:49) Home Medications: HTN MEDS Past Medical History - General Information source: Patient - Social History Smoking Status: Current Every Day Smoker Frequency of alcohol use: None Drug Abuse: None Family History: Reviewed & Not Pertinent Neurological Medical History: Reports: Hx Migraine, Hx Seizures Renal/ Medical History: Reports: Hx Ovarian Cysts. Denies: Hx Peritoneal Dialysis Musculoskeletal Medical History: Reports Hx Musculoskeletal Trauma Psychiatric Medical History: Reports: Hx Anxiety, Hx Bipolar Disorder, Hx Borderline Personality Disorder, Hx Depression, Hx Post Traumatic Stress Disorder Traumatic Medical History: Reports: Hx Fractures - Patient states she has had a hip and multiple bones in her face fractures Past Surgical History: Reports: Hx Tubal Ligation Physical Exam - Vital signs Vitals: Temp Pulse Resp BP Pulse Ox 98.5 F 89 19 141/99 H 99 11/04/20 19:49 11/04/20 19:49 11/04/20 19:49 11/04/20 19:49 11/04/20 19:49 Course - Re-evaluation Re-evalutation: 11/04/20 21:38 Chest x-ray reviewed no acute findings no obvious infiltrate. - Vital Signs Vital signs: Temp Pulse Resp BP Pulse Ox 98.5 F 89 19 141/99 H 99 11/04/20 19:49 11/04/20 19:49 11/04/20 19:49 11/04/20 19:49 11/04/20 19:49 - Laboratory Results Result Diagrams: 11/04/20 20:03 11/04/20 20:03 Laboratory Results Interpreted: 11/04/20 11/04/20 20:03 20:03 WBC 10.6 H RDW 17.8 H Absolute Neuts (auto) 8.7 H Seg Neutrophils % 81.9 H Sodium 136.8 L Chloride 109 H Critical Laboratory Results Reviewed: No Critical Results - Radiology Results Critical Radiology Results Reviewed: No Critical Results Discharge - Discharge Clinical Impression: Cough, SOB (shortness of breath) Condition: Stable Disposition: HOME, SELF-CARE Instructions: COVID-19 Guidance for Persons Under Investigation Additional Instructions: self quarantine at home until called with covid results. Follow all printed instructions. Take medications as prescribed. Follow up with your doctor in 2-3 days for re-check. Return to the ER if your condition worsens. Prescriptions: Prednisone [Deltasone 20 mg Tablet] 3 tab PO DAILY 4 Days #12 tablet Doxycycline Hyclate [Vibramycin] 100 mg PO BID #20 capsule Referrals: MATT OCONNELL MD [ACTIVE STAFF] - Follow up as needed
[2020-11-04 20:26] LABS: ABSOLUTE EOSINOPHILS # (AUTO) 0.1 10^3/uL (0.0-0.6); ABSOLUTE LYMPHOCYTES (AUTO) 1.4 10^3/uL (0.5-4.7); ABSOLUTE MONOCYTES (AUTO) 0.4 10^3/uL (0.1-1.4); ABSOLUTE NEUT (AUTO) 8.7 10^3/uL (1.7-8.2); BASOPHILS % (AUTO) 0.4 % (0-2); EOSINOPHILS % (AUTO) 0.5 % (0-6); HEMATOCRIT 37.2 % (36.0-47.0); HEMOGLOBIN 12.9 g/dL (12.0-15.5); LYMPHOCYTES % (AUTO) 13.1 % (13-45); MEAN CORPUSCULAR HEMOGLOBIN 27.5 pg (27.0-33.4); MEAN CORPUSCULAR HGB CONC 34.6 g/dL (32.0-36.0); MEAN CORPUSCULAR VOLUME 80 fl (80-97); MONOCYTES % (AUTO) 4.1 % (3-13); PLATELET COUNT 312 10^3/uL (150-450); RED BLOOD COUNT 4.68 10^6/uL (3.72-5.28); RED CELL DISTRIBUTION WIDTH 17.8 % (11.5-14.0); SEGMENTED NEUTROPHILS % (AUTO) 81.9 % (42-78); TOTAL CELLS COUNTED % (AUTO) 100 %; WHITE BLOOD COUNT 10.6 10^3/uL (4.0-10.5)
[2020-11-04 20:38] LABS: ALBUMIN 4.3 g/dL (3.5-5.0); ALKALINE PHOSPHATASE 81 U/L (38-126); ANION GAP 5 (5-19); ASPARTATE AMINO TRANSFERASE 20 U/L (14-36); BILIRUBIN,DIRECT 0.2 mg/dL (0.0-0.4); BILIRUBIN,TOTAL 0.4 mg/dL (0.2-1.3); BLOOD UREA NITROGEN 9 mg/dL (7-20); CALCIUM 9.2 mg/dL (8.4-10.2); CARBON DIOXIDE 23 mmol/L (22-30); CHLORIDE 109 mmol/L (98-107); GLUCOSE 89 mg/dL (75-110); POTASSIUM 3.8 mmol/L (3.6-5.0); TOTAL PROTEIN 7.5 g/dL (6.3-8.2)
[2020-11-04 20:39] LABS: A TYPE INFLUENZA AG NEGATIVE (NEGATIVE); B INFLUENZA AG NEGATIVE (NEGATIVE)
[2020-11-04] MEDS ORDERED: PREDNISONE 20 MG TABLET PO ONE (21:10)
--- NOTE | 2020-11-04 21:23 | RADIOLOGY REPORT (SQ) ---
EXAM DESCRIPTION: XR CHEST 1 VIEW COMPLETED DATE/TME: 11/04/2020 20:54 CLINICAL HISTORY: 40 years, Female, Cough congestion runny nose sore throat COMPARISON: None. NUMBER OF VIEWS: 1 TECHNIQUE: AP portable upright view of the chest was obtained at 8:47 PM. LIMITATIONS: None. FINDINGS: The heart size is normal. Lungs are clear. There is no evidence of pleural effusion or pneumothorax. No gross bony abnormality is seen. IMPRESSION: No acute abnormality as above. copyright 2010 [email or web address]- All Rights Reserved
[2020-11-04 22:11] VITALS: BP 123/76
--- NOTE | 2020-11-05 07:52 | EKG REPORT ---
SEVERITY:- ABNORMAL ECG - SINUS RHYTHM PROBABLE LEFT ATRIAL ABNORMALITY RIGHT BUNDLE BRANCH BLOCK : Confirmed by: Satinder Quezada MD 05-Nov-2020 07:51:11
== END 2020-11-04 22:11 | disposition home or self-care (01) ==
LOC: ER 19:37
DX: R06.02 Shortness of breath (principal); R05 Cough; R68.89 Other general symptoms and signs; M79.10 Myalgia, unspecified site; R51.9 Headache, unspecified; F17.200 Nicotine dependence, unspecified, uncomplicated; Z20.822 Contact with and (suspected) exposure to COVID-19; Z88.3 Allergy status to other anti-infective agents; Z88.0 Allergy status to penicillin
CPT/HCPCS: 93005; 99285; 36415; 87070; 87880; 85025; 80053; 84484; 87804; 71045; 93010; U0003; J7512; C9803; 87635